=== PATIENT | female | born 1995 | race Caucasian/White ===

== ENCOUNTER 2016-12-16 17:24 | Emergency (ER) | payer OTHER ==
[~2016-12-16] VITALS: Ht 165.1 cm; Wt 95.2 kg
[~2016-12-16 17:24] MED LIST: ACET-1256 PO; FLNIN/ NAE; PRED20TA PO
[2016-12-16 17:44] VITALS: TEMP 36.7; Ht 165.1 cm; Wt 95.2 kg
[2016-12-16] MEDS ORDERED: ETON1IMP2 INTRAD (19:18)
[2016-12-16] MEDS ORDERED: CALC500C3 PO (19:18)
[2016-12-16] MEDS ORDERED: KETOROLAC TROMETHAMINE 30 MG/ML VIAL IV STA (19:20)
[2016-12-16 19:29] LABS: BASO % 0.3 %; BASO ABS # 0.03 K/uL (0-0.2); COMPLETE YES; EOS % 0.8 %; HEMATOCRIT 38.6 % (37-47); IG% 0.2 %; LYMPH % 22.7 %; LYMPH ABS # 2.28 K/uL (1.2-3.4); MEAN CELL VOLUME 86.2 fL (80-100); MEAN CORPUSCULAR HEMOGLOBIN 28.8 pg (25-34); MEAN CORPUSCULAR HGB CONC 33.4 g/dl (32-36); MEAN PLATELET VOLUME 10.4 fL (7.4-10.4); MONO % 7.7 %; NEUT % 68.3 %; PLATELET COUNT 295 K/uL (130-400); RED BLOOD COUNT 4.48 M/uL (4.2-5.4); WHITE BLOOD COUNT 10.03 K/uL (4.8-10.8)
--- NOTE | 2016-12-16 19:35 | DIAGNOSTIC IMAGING REPORT ---
CHEST ONE VIEW PORTABLE CLINICAL HISTORY: Chest pain. COMPARISON STUDY: Chest radiograph October 13, [address] January 31, 2016. FINDINGS: Lung volumes are mildly diminished. No consolidation is identified. There is no pneumothorax or pleural effusion. Pulmonary vascularity is normal. Cardiac size is normal. Mediastinal contours are normal. IMPRESSION: No acute cardiopulmonary findings. Electronically signed by: Abdon Barrientos M.D. 12/16/2016 7:33 PM Dictated Date/Time: 12/16/2016 7:33 PM
[2016-12-16 19:41] LABS: BUN/CREATININE RATIO 13.8 (10-20); CALCIUM 9.1 mg/dl (8.5-10.1); CREATININE 0.73 mg/dl (0.60-1.20); POTASSIUM 3.8 mmol/L (3.5-5.1)
[2016-12-16 19:46] LABS: CKMB/CK RATIO 0.5 (0-3.0); PREG INTERNAL NEGATIVE QC NEG CLEAR BACKGROUND; PREG INTERNAL POSITIVE QC POS CONTROL LINE
[2016-12-16] MEDS ORDERED: HYDROmorphone INJ 0.5 MG/0.5 ML SYR IV STA (19:54)
[2016-12-16 20:29] LABS: URINE APPEARANCE CLOUDY (CLEAR); URINE BILIRUBIN NEG (NEG); URINE COLOR DK YELLOW; URINE EPITHELIAL CELL AUTO >30 /lpf (0-5); URINE NITRITE NEG (NEG); UROBILINOGEN NEG (NEG)
[2016-12-16 20:35] LABS: MANUAL MICROSCOPIC REQUIRED? NO; REVIEW REQ? YES
[2016-12-16 20:45] LABS: URINE MUCUS PRESENT (NONE PRSENT)
[2016-12-16] MEDS ORDERED: OXYCODONE IR HOME PACK PO ONE (21:15)
[2016-12-16 21:31] VITALS: BP 126/90; PULSE 64; O2SAT 100
--- NOTE | 2016-12-16 23:19 | EMERGENCY ROOM VISIT NOTE ---
History Report prepared by Coco: Marta Pérez Under the Supervision of: Dr. Ayaz Mock M.D. First contact with patient: 19:08 Chief Complaint: PAIN (GENERALIZED) Stated Complaint: CHEST,SHOULDER, BACK PAIN History of Present Illness The patient is a 21 year old female who presents to the Emergency Room with complaints of worsening pain to the upper body beginning this afternoon. The patient states that she began to experience chest pain and thought it was heart burn. The patient took TUMS and then napped. She notes that when she woke up she experienced more pain that radiated into her shoulders and back also. The patient has taken Advil for the pain. She denies having symptoms like this before or recent injuries. She does note that she has been doing a lot of lifting because her child had a leg injury and has been in a splint. She denies any recent prolonged travel. No leg swelling or pain. No prior history of clot. Pt denies LOC, headache, fevers, chills, diaphoresis, visual changes, neck pain, breathing difficulties, nausea, vomiting, abdominal pain, melena, hematochezia, urinary symptoms, numbness, weakness, lymphadenopathy, rash, or other complaints. Source of History: patient Onset: this afternoon Position: other (upper body) Timing: worsening Associated Symptoms: + back pain, + chest pain Note: Patient is experiencing shoulder pain. Review of Systems See HPI for pertinent positives and negatives. A total of ten systems were reviewed and were otherwise negative. Past Medical & Surgical Medical Problems: (1) Abdominal pain (2) Arm pain (3) Calf pain (4) Calf pain (5) Chest pain (6) Depression (7) Hemorrhoids (8) Left shoulder strain (9) Mood disorder (10) Post-dates (11) (12) Third trimester Family History Heart disease Hypertension Kidney disease Social History Smoking Status: Current Every Day Smoker Alcohol Use: none Drug Use: none Marital Status: in relationship Housing Status: lives with family Occupation Status: unemployed Current/Historical Medications Scheduled Etonogestrel (Nexplanon), 68 MG INTRAD UD Scheduled PRN Acetaminophen (Tylenol), 1,000 MG PO Q8 PRN for Pain Calcium Carbonate (Tums), 500 MG PO UD PRN for Heartburn Allergies Coded Allergies: No Known Allergies (Unverified , 12/24/16) Physical Exam Vital Signs Date Time Temp Pulse Resp B/P Pulse Ox O2 Delivery O2 Flow Rate FiO2 12/16/16 21:31 64 18 126/90 100 12/16/16 19:31 65 18 131/69 96 12/16/16 17:44 36.7 82 16 136/103 98 Room Air Physical Exam GENERAL: Awake, alert, well-appearing, in no distress HENT: Normocephalic, atraumatic. Oropharynx unremarkable. EYES: Normal conjunctiva. Sclera non-icteric. NECK: Supple. No nuchal rigidity. FROM. No JVD. RESPIRATORY: Clear to auscultation. CARDIAC: Regular rate, normal rhythm. Extremities warm and well perfused. Pulses equal. ABDOMEN: Soft, non-distended. No tenderness to palpation. No rebound or guarding. No masses. RECTAL: Deferred. MUSCULOSKELETAL: Chest examination reveals left sided tenderness. The back is symmetrical on inspection without obvious abnormality. Left trapezius tenderness. There is no CVA tenderness to palpation. No joint edema. LOWER EXTREMITIES: Calves are equal size bilaterally and non-tender. No edema. No discoloration. NEURO: Normal sensorium. No sensory or motor deficits noted. SKIN: No rash or jaundice noted. Medical Decision & Procedures ER Provider Diagnostic Interpretation: X-ray: Per my interpretation, radiologist review. CHEST ONE VIEW PORTABLE CLINICAL HISTORY: Chest pain. COMPARISON STUDY: Chest radiograph October 13, [address] January 31, 2016. FINDINGS: Lung volumes are mildly diminished. No consolidation is identified. There is no pneumothorax or pleural effusion. Pulmonary vascularity is normal. Cardiac size is normal. Mediastinal contours are normal. IMPRESSION: No acute cardiopulmonary findings. Electronically signed by: Abdon Barrientos M.D. 12/16/2016 7:33 PM Dictated Date/Time: 12/16/2016 7:33 PM Laboratory Results 12/16/16 19:20 Red Blood Count 4.48, Mean Corpuscular Volume 86.2, Mean Corpuscular Hemoglobin 28.8, Mean Corpuscular Hemoglobin Concent 33.4, Mean Platelet Volume 10.4, Neutrophils (%) (Auto) 68.3, Lymphocytes (%) (Auto) 22.7, Monocytes (%) (Auto) 7.7, Eosinophils (%) (Auto) 0.8, Basophils (%) (Auto) 0.3, Neutrophils # (Auto) 6.85, Lymphocytes # (Auto) 2.28, Monocytes # (Auto) 0.77, Eosinophils # (Auto) 0.08, Basophils # (Auto) 0.03 12/16/16 19:20 Test 12/16/16 19:20 12/16/16 19:25 12/16/16 20:11 White Blood Count 10.03 K/uL (4.8-10.8) Red Blood Count 4.48 M/uL (4.2-5.4) Hemoglobin 12.9 g/dL (12.0-16.0) Hematocrit 38.6 % (37-47) Mean Corpuscular Volume 86.2 fL (80-100) Mean Corpuscular Hemoglobin 28.8 pg (25-34) Mean Corpuscular Hemoglobin Concent 33.4 g/dl (32-36) Platelet Count 295 K/uL (130-400) Mean Platelet Volume 10.4 fL (7.4-10.4) Neutrophils (%) (Auto) 68.3 % Lymphocytes (%) (Auto) 22.7 % Monocytes (%) (Auto) 7.7 % Eosinophils (%) (Auto) 0.8 % Basophils (%) (Auto) 0.3 % Neutrophils # (Auto) 6.85 K/uL (1.4-6.5) Lymphocytes # (Auto) 2.28 K/uL (1.2-3.4) Monocytes # (Auto) 0.77 K/uL (0.11-0.59) Eosinophils # (Auto) 0.08 K/uL (0-0.5) Basophils # (Auto) 0.03 K/uL (0-0.2) RDW Standard Deviation 48.3 fL (36.4-46.3) RDW Coefficient of Variation 15.2 % (11.5-14.5) Immature Granulocyte % (Auto) 0.2 % Immature Granulocyte # (Auto) 0.02 K/uL (0.00-0.02) Anion Gap 7.0 mmol/L (3-11) Est Creatinine Clear Calc Drug Dose 136.8 ml/min Estimated GFR () 134.5 Estimated GFR (Non- 116.1 BUN/Creatinine Ratio 13.8 (10-20) Calcium Level 9.1 mg/dl (8.5-10.1) Total Bilirubin 0.3 mg/dl (0.2-1) Direct Bilirubin 0.1 mg/dl (0-0.2) Aspartate Amino Transf (AST/SGOT) 21 U/L (15-37) Alanine Aminotransferase (ALT/SGPT) 41 U/L (12-78) Alkaline Phosphatase 104 U/L (45-117) Total Creatine Kinase 145 U/L (26-192) Creatine Kinase MB 0.7 ng/ml (0.5-3.6) Creatine Kinase MB Ratio 0.5 (0-3.0) Total Protein 7.6 gm/dl (6.4-8.2) Albumin 3.6 gm/dl (3.4-5.0) Lipase 136 U/L (73-393) Human Chorionic Gonadotropin, Qual NEG (NEG) Bedside D-Dimer 280 ng/mlFEU (0-450) Bedside Troponin I 0.000 ng/ml (0-0.045) Urine Color DK YELLOW Urine Appearance CLOUDY (CLEAR) Urine pH 6.0 (4.5-7.5) Urine Specific [place] 1.030 (1.000-1.030) Urine Protein TRACE (NEG) Urine Glucose (UA) NEG (NEG) Urine Ketones TRACE (NEG) Urine Occult Blood NEG (NEG) Urine Nitrite NEG (NEG) Urine Bilirubin NEG (NEG) Urine Urobilinogen NEG (NEG) Urine Leukocyte Esterase MODERATE (NEG) Urine WBC (Auto) 10-30 /hpf (0-5) Urine RBC (Auto) 5-10 /hpf (0-4) Urine Hyaline Casts (Auto) 10-30 /lpf (0-5) Urine Epithelial Cells (Auto) >30 /lpf (0-5) Urine Bacteria (Auto) 1+ (NEG) Urine Mucus PRESENT (NONE PRSENT) Laboratory results reviewed by me Medications Administered Medications (Trade) Dose Ordered Sig/Isa Route Start Time Stop Time Status Last Admin Dose Admin Ketorolac Tromethamine (Toradol Inj) 30 mg NOW STAT IV 12/16/16 19:20 12/16/16 19:21 DC 12/16/16 19:29 30 MG Hydromorphone HCl (Dilaudid Inj) 0.5 mg NOW STAT IV 12/16/16 19:54 12/16/16 19:55 DC 12/16/16 20:00 0.5 MG Oxycodone HCl (Roxicodone Immediate Rel 5MG Home Pack) 1 homepack UD ONCE PO 12/16/16 21:15 12/16/16 21:16 DC 12/16/16 21:24 1 HOMEPACK ECG Indication: chest pain Rate (beats per minute): 80 Rhythm: normal sinus Findings: nonspecific-ST abn, no acute ischemic change, no ectopy, other (low voltage QRS) ED Course 1918: The patient was evaluated in room C5. A complete history and physical exam was performed. 1919: Toradol Inj 30 mg IV. 1953: Dilaudid Inj 0.5 mg IV. 2111: I reevaluated the patient. She is doing better but still in slight pain. She denies any urinary symptoms. I discussed plan for pain medication and follow up with PCP. 2114: Roxicodone Immediate Rel 5 mg Home Pack 1 homepack PO. 2117: I reevaluated the patient. Discussed results and discharge instructions: She verbalized understanding and agreement. The patient is ready for discharge. Medical Decision Triage Nursing notes reviewed. The patient's presentation and history were concerning for chest and back pain. Etiologies such as costochondritis, cardiac ischemia, aortic dissection, pulmonary embolism, pneumonia, pneumothorax, musculoskeletal, infections, gastrointestinal, as well as others were entertained. The patient was evaluated . She was given Toradol for pain. ECG was unremarkable. The patient had pain all day today. Her CBC, chemistry panel, LFTs, lipase, test, troponin, and d-dimer were negative. A single troponin was performed due to the duration of symptoms and physical examination. The patient had reproducible tenderness. She was then given a dose of Dilaudid. On reassessment she was feeling better but still had some discomfort. I suspect costochondritis. X-ray was unremarkable. Conservative management was discussed. The patient felt very comfortable with this. I did ask her about urinary symptoms and she stated she had none. Suspect this was likely contaminated specimen given the epithelial cells. The patient was given a home pack. She will rest. If she worsens she will come back to the Emergency Room. By the evaluation outlined above other emergent etiologies such as those listed in the differential, as well as others, were deemed relatively unlikely. The patient was informed about the findings as listed above. All questions were answered and she was pleased with the treatment. Return instructions were outlined and the patient was discharged in stable condition. The patient was referred to her PCP for follow-up for a recheck of the current condition. The chart was completed utilizing [employer] Speech voice recognition software. Grammatical errors, random word insertions, pronoun errors, and incomplete sentences are an occasional consequence of this system due to software limitations, ambient noise, and hardware issues. Any formal questions or concerns about the content, text, or information contained within the body of this dictation should be directly addressed to the physician for clarification. [place] Drug Monitoring Program Search Results: patient reviewed within database, no issues identified Impression Primary Impression: Left sided chest pain Additional Impression: trapezius pain Scribe Attestation The scribe's documentation has been prepared under my direction and personally reviewed by me in its entirety. I confirm that the note above accurately reflects all work, treatment, procedures, and medical decision making performed by me. Departure Information Dispostion Home / Self-Care Referrals Ruth Rossi D.O. (PCP) Forms HOME CARE DOCUMENTATION FORM, IMPORTANT VISIT INFORMATION, WORK / SCHOOL INSTRUCTIONS Patient Instructions My [facility] Additional Instructions CHEST PAIN INSTRUCTIONS: DO NOT drive, drink alcohol, operate machinery, or perform dangerous activities today. You were given medications in the ER that can affect your ability to safely function or operate a vehicle. Oxycodone (OxyIR) 5mg: Take 1-2 pills every four hours for breakthrough pain. Avoid alcohol, operating machinery or dangerous equipment, working on ladders or roofs, DRIVING, or situations where being under the influence may be dangerous. Ibuprofen(Motrin, Advil) may be used for fever or pain. Use 600mg every six hours as needed. Take with food. Avoid using more than 2400mg in a 24 hour period. Do not use 2400mg per day for more than three consecutive days without physician direction. Prolonged inappropriate use can lead to stomach upset or ulcers. (AND/OR) Acetaminophen(Tylenol) may be used for fever or pain. Use 1000mg every six hours as needed. Avoid using more than 4000mg in a 24 hour period. Rest and drink plenty of fluids as tolerated. Continue current medications. Warm compresses for 20 minutes at a time four times daily for 2-3 days. Avoid strenuous activities and anything that worsens your pain. Resume normal activities once your symptoms resolve. Return to the ER immediately for worsening or persistent chest pain, abdominal pain, vomiting, fevers, chest pains, difficulty breathing, worsening of your condition, or as needed. Follow up with your primary physician in 2-3 days for a recheck of your current condition. Problem Qualifiers
== END 2016-12-16 21:32 | disposition home or self-care (01) ==
LOC: C.EDB 17:26 → C.EDC 21:32
DX: R07.9 Chest pain, unspecified (principal); M25.512 Pain in left shoulder; F32.9 Major depressive disorder, single episode, unspecified; F17.210 Nicotine dependence, cigarettes, uncomplicated

== ENCOUNTER 2017-03-20 09:27 | Emergency (ER) | payer OTHER ==
[~2017-03-20] VITALS: Ht 165.1 cm; Wt 94.0 kg
[~2017-03-20 09:27] MED LIST changes: +CALC500C3 PO; +ETON1IMP2 INTRAD; -FLNIN/ NAE; -PRED20TA PO
[2017-03-20 09:29] VITALS: TEMP 37; Ht 165.1 cm; Wt 94.0 kg
[2017-03-20] MEDS ORDERED: IBUP-1050 PO (09:40)
[2017-03-20] MEDS ORDERED: HYDR-5688 PO (10:33)
[2017-03-20] MEDS ORDERED: PENI500T2 PO (10:33)
--- NOTE | 2017-03-20 10:34 | EMERGENCY ROOM VISIT NOTE ---
ED Visit Note First contact with patient: 09:52 CHIEF COMPLAINT: Right upper dental pain 2 days HISTORY OF PRESENT ILLNESS: Patient is a 22-year-old white female who presents to emergency department for evaluation of right upper dental pain. She has had problems with the tooth for several months. Her dentist has been placing "temporary fillings." She states the filling fell out recently. She has an appointment with Dr. Arteaga in [place] on April 05 to have the tooth extracted. She states that despite using Tylenol and ibuprofen, she reports 10/ 10 throbbing pain in the right jaw that radiates to the right ear. She's been icing constantly. There has been no drainage or discharge. She cannot see her dentist until the end of next week, and reports that she is on the cancellation list for the oral surgeon. Denies facial swelling or fever. REVIEW OF SYSTEMS: Review of systems as per HPI. All other systems reviewed were negative. At least 6 systems reviewed. PMH: Electronic medical records are reviewed and summarized as above/below. See Problem List. SOCIAL HISTORY: Patient lives at home. Smoker. PHYSICAL EXAM: Vital Signs: Reviewed Nurse's notes. CONSTITUTIONAL: Patient is a well-appearing 22-year-old white female who is awake and alert and in mild distress due to her dental pain. She is holding an ice pack on the right side of her face. Vital signs are stable. EARS: Tympanic membranes intact, not inflamed, have normal contour. External canals clear. MOUTH: Overall the patient has fair dentition. The right upper rear molar in question has an obvious cavity, and is tender to percussion. There is slight swelling along the gumline although no focal abscess. Mucous membranes moist, no lesions, tongue and gums appear normal. THROAT: No pharyngeal injection, exudates, or tonsillar hypertrophy. Airway is patent. No trismus noted. FACE: No facial swelling is appreciated. No cellulitic changes. NECK: No lymphadenopathy. ED course: The patient was seen and assessed as above. Her old records are reviewed. Patient was reviewed in the [facility] Prescription Drug Monitoring Program, and there were no red flags noted. She has 2 controlled substance prescriptions in the last 12 months. She is appointment with oral surgery in a couple of weeks. She will be placed on Pen- Vee K to cover for any infection was given a small prescription for Naylor to use for discomfort. She was encouraged to see her dentist next week, and to follow-up with oral surgeon as scheduled. She does not have any evidence for drainable abscess, facial cellulitis or Naun's angina at this time. Problem List Medical Problems: (1) Abdominal pain Status: Resolved (2) Arm pain Status: Resolved (3) Calf pain Status: Resolved (4) Calf pain Status: Resolved (5) Chest pain Status: Resolved (6) Depression Status: Chronic (7) Hemorrhoids Status: Chronic (8) Left shoulder strain Status: Resolved (9) Left sided chest pain Status: Resolved (10) Mood disorder Status: Chronic (11) Post-dates Status: Resolved (12) Status: Resolved (13) Third trimester Status: Resolved Current/Historical Medications Scheduled Etonogestrel (Nexplanon), 68 MG INTRAD UD Ibuprofen (Advil), 200-600 MG PO Q4H Penicillin V Potassium (Veetids), 500 MG PO QID Scheduled PRN Acetaminophen (Tylenol), 1,000 MG PO Q8 PRN for Pain Hydrocodone/Acetaminophen 5MG/325MG (Naylor 5MG/325MG), 1-2 TABLETS PO Q4 PRN for Pain Allergies Coded Allergies: No Known Allergies (Unverified , 03/20/17) Vital Signs Date Time Temp Pulse Resp B/P Pulse Ox O2 Delivery O2 Flow Rate FiO2 03/20/17 10:40 87 18 118/83 99 03/20/17 09:29 37.0 87 18 118/83 99 Departure Information Impression Primary Impression: Dentalgia Prescriptions Penicillin V Potassium (VEETIDS) 500 Mg Tab 500 MG PO QID, #40 TAB Prov: Maylin Nolen PA 03/20/17 Hydrocodone/Acetaminophen 5MG/325MG (Naylor 5MG/325MG) Tab 1-2 TABLETS PO Q4 Y for Pain, #20 TAB For Initial Treatment Prov: Maylin Nolen PA 03/20/17 Referrals Ruth Rossi D.O. (PCP) Patient Instructions My [facility] Additional Instructions Penicillin 500mg: Take one pill four times daily for 10 days for your dental infection. All antibiotics can cause diarrhea. If this occurs and you feel worse or it does not resolve in 1-2 days follow up with your doctor or return to the Emergency Department as this could be signs of serious underlying problems. Any medication can cause an allergic reaction, stop the pills immediately and return to the ER for rash, hives, breathing difficulties, or swelling. Ibuprofen(Motrin, Advil) may be used for fever or pain. Use 600mg every six hours as needed. Take with food. Avoid using more than 2400mg in a 24 hour period. Do not use 2400mg per day for more than three consecutive days without physician direction. Prolonged inappropriate use can lead to stomach upset or ulcers. (AND/OR) Acetaminophen(Tylenol) may be used for fever or pain. Use 1000mg every six hours as needed. Avoid using more than 4000mg in a 24 hour period. Hydrocodone/Acetaminophen (Naylor) 5/325 mg: Take 1-2 pills every four hours for breakthrough pain. Avoid alcohol, operating machinery or dangerous equipment, working on ladders or roofs, DRIVING, or situations where being under the influence may be dangerous. It is recommended to use an [id number] stool softener such as Colace, 100mg twice daily while taking this medication to avoid constipation. Saltwater gargles after meals and before bedtime. Soft foods. Followup with your dentist and oral surgeon as you have scheduled. You may also follow up with your primary care physician for pain/care management until you can be seen by your dentist.
[2017-03-20 10:40] VITALS: BP 118/83; PULSE 87; O2SAT 99
== END 2017-03-20 10:40 | disposition home or self-care (01) ==
LOC: C.EDB 09:28
DX: K08.89 Other specified disorders of teeth and supporting structures (principal); F32.9 Major depressive disorder, single episode, unspecified; K64.9 Unspecified hemorrhoids

== ENCOUNTER 2017-05-20 10:23 | Emergency (ER) | payer OTHER ==
[~2017-05-20] VITALS: Ht 165.1 cm; Wt 92.0 kg
[~2017-05-20 10:23] MED LIST changes: -CALC500C3 PO; +HYDR-5688 PO; +IBUP-1050 PO
[2017-05-20 10:29] VITALS: Ht 165.1 cm; Wt 92.0 kg
[2017-05-20 10:59] VITALS: O2SAT 95
[2017-05-20] MEDS ORDERED: SODIUM CHLORIDE 0.9% 1000ML 1,000 ML IV STA (11:15)
[2017-05-20 11:39] LABS: BASO % 0.2 %; BASO ABS # 0.02 K/uL (0-0.2); COMPLETE YES; EOS % 0.7 %; HEMATOCRIT 39.8 % (37-47); IG% 0.2 %; LYMPH % 31.1 %; LYMPH ABS # 3.32 K/uL (1.2-3.4); MEAN CELL VOLUME 88.1 fL (80-100); MEAN CORPUSCULAR HGB CONC 32.9 g/dl (32-36); MEAN PLATELET VOLUME 10.6 fL (7.4-10.4); MONO % 7.1 %; NEUT % 60.7 %; PLATELET COUNT 306 K/uL (130-400); RED BLOOD COUNT 4.52 M/uL (4.2-5.4); WHITE BLOOD COUNT 10.69 K/uL (4.8-10.8)
--- NOTE | 2017-05-20 11:39 | EMERGENCY ROOM VISIT NOTE ---
History First contact with patient: 11:00 Chief Complaint: SYNCOPE Stated Complaint: LETHARGIC History of Present Illness The patient is a 22 year old female who presents to the Emergency Room with complaints of syncopal episode while at work. Patient works for [employer], and states as she was returning to work from a cigarette break, she was walking down the steps and had a syncopal episode. The patient states she was at the bottom of the steps when she began feeling dizzy and lightheaded, and woke up on the concrete floor with somebody shaking her awake. The patient states she was feeling fine this morning, and ate a few crackers and a few sips of water for breakfast. The patient states she went to work feeling okay, and symptoms all came on after her smoke break. The patient states she has been working in a extremely warm room [employer], but did not have symptoms until this episode. She does not complaining of right-sided forehead pain, bilateral anterior chest wall pain during inspiration, and lower abdominal discomfort. The patient states she felt shortness of breath just before and just after the episode of syncope. The patient is unsure if she hit her head, and the episode was unwitnessed. The patient isn't sure of the amount of time she was unconscious. The patient does report history of a similar episode approximately 2 years ago. The patient did see her PCP and had an extensive workup for this episode at that time. At that time, the patient was dealing with a C. difficile infection, so it was felt that her syncope could've been related to her extremities, pain she had associated with the infection. The patient denies any recent illness, diarrhea, urinary symptoms, recent headaches , upper respiratory infection symptoms, weakness, or changes in vision. The patient does state she has been feeling fatigued. The patient states on a regular basis, she does not consume fluids. The patient's last menstrual period was 2 weeks ago, however she states today while in the emergency department, after urinating, she did notice a small amount of blood on the toilet paper when she wiped. The patient is a smoker, and smokes one half pack cigarettes per day. She denies alcohol use, but does admit to smoking marijuana on occasion. Review of Systems A complete 10 point review of systems was reviewed with the patient with pertinent positives and negatives as per history of present illness. All else were negative. Past Medical/Surgical History Medical Problems: (1) Abdominal pain (2) Arm pain (3) Calf pain (4) Calf pain (5) Chest pain (6) Depression (7) Hemorrhoids (8) Left shoulder strain (9) Left sided chest pain (10) Mood disorder (11) Post-dates (12) (13) Third trimester Family History Heart disease Hypertension Kidney disease Social History Smoking Status: Current Every Day Smoker Smokeless Tobacco Use: No Alcohol Use: none Drug Use: marijuana Marital Status: in relationship Housing Status: lives with family Occupation Status: unemployed Current/Historical Medications Scheduled Ibuprofen (Advil), 200-600 MG PO Q4H Nitrofurantoin Monohyd Macrocr (Macrobid), 100 MG PO BID Scheduled PRN Acetaminophen (Tylenol), 1,000 MG PO Q8 PRN for Pain Allergies Coded Allergies: No Known Allergies (Unverified , 05/20/17) Physical Exam Vital Signs Date Time Temp Pulse Resp B/P (MAP) Pulse Ox O2 Delivery O2 Flow Rate FiO2 05/20/17 16:08 36.7 60 18 121/78 91 05/20/17 15:59 60 18 121/78 91 05/20/17 14:23 59 18 99/75 100 Room Air 05/20/17 13:33 56 05/20/17 13:32 51 20 129/85 95 Room Air 05/20/17 11:49 59 113/74 57 107/64 92 131/75 05/20/17 11:03 68 05/20/17 10:59 95 Room Air 05/20/17 10:59 87 20 111/69 95 Room Air 05/20/17 10:29 36.7 58 20 120/67 100 Room Air Physical Exam VITALS: Vitals are noted on the nurse's note and reviewed by myself. Vital signs stable. GENERAL: 22-year-old female, in no acute distress, nondiaphoretic, well- developed well-nourished. SKIN: The skin was without rashes, erythema, edema, or bruising. There is no tenting of the skin. Capillary reflex less than 2 seconds. HEAD: Normocephalic atraumatic. EARS: External auditory canals clear, tympanic membranes pearly bermudez without erythema or effusion bilaterally. EYES: Pupils equal round and reactive to light and accommodation. Conjunctivae without injection, sclerae without icterus. Extraocular movements intact. NOSE: Patent, turbinates without inflammation or discharge. No sinus tenderness. MOUTH: Mucous membranes moist. Tonsils are not enlarged. Pharynx without erythema or exudate. Uvula midline. Airway patent. Tongue does not deviate. NECK: Supple without nuchal rigidity. No lymphadenopathy. No thyromegaly. Cervical spine is nontender. No JVD. HEART: Regular rate and rhythm without murmurs gallops or rubs. LUNGS: Clear to auscultation bilaterally without wheezes, rales or rhonchi. No dullness to percussion. No retractions or accessory muscle use. ABDOMEN: Positive bowel sounds x 4. Normal tympanic percussion. Moderate tenderness on palpation of the lower abdomen and pelvis, suprapubic area. Otherwise, Soft, without tenderness, masses or organomegaly. Oconnor sign negative. No guarding or rebound tenderness. MUSCULOSKELETAL: No muscle atrophy, erythema, or edema noted. Full range of motion without joint tenderness in all extremities. No tenderness to palpation. Normal gait. Strength 5/5 throughout. NEURO: Patient was alert and oriented to person place and time. Normal sensation to light and sharp touch. Deep tendon reflexes 2+ throughout. No focal neurological deficits. Medical Decision & Procedures ER Provider Diagnostic Interpretation: LABS: Urinalysis did show large ketones and protein with trace blood and urine dipstick. Urinalysis was without leukocytosis or positive nitrates. POC glucose was slightly elevated at 103 upon patient's arrival to the emergency department, serum glucose 78. CBC without leukocytosis, anemia, or vomiting. Renal function normal with creatinine of 0.83. Estimated GFR 98.7. Electrolytes without abnormalities. Lipase normal at 145. INR normal 1.0 CRP slightly elevated at 0.72. D-Dimer negative <190. RADIOLOGY: U/S Pelvis with transvaginal: FINDINGS: Uterus: The right uterine fundus contains a 7 mm echogenic focus with posterior shadowing, likely calcification. Retroverted. The uterus measures 7.5 x 4.3 x 5.5 cm. Endometrial stripe measures 5 mm in thickness. Endometrium normal-appearing. Right adnexa: Right ovary normal. Right ovary measures 2.6 x 1.4 x 2.1 cm. Normal color Doppler flow and arterial and venous waveforms within the ovarian parenchyma. Trace free fluid in the right adnexa. Left adnexa: Left ovary contains an anechoic simple appearing 3.5 cm cyst. This is most certainly benign and requires no follow-up. Left ovary measures 5.1 x 4.3 x 3.8 cm., Expanded by the cyst Normal color Doppler flow and arterial and venous waveforms within the ovarian parenchyma. Other: Trace free fluid in the right adnexa, likely physiologic. IMPRESSION: 1. No evidence of ovarian torsion. Essentially normal pelvic ultrasound. CXR: FINDINGS: The cardiac and mediastinal contours are normal. There is no evidence of focal pulmonary consolidation. There is no evidence of failure. No pleural effusions are visualized.[ IMPRESSION: No active disease in the chest. CT Head without contrast: FINDINGS: No intra or extra-axial mass lesions are visualized. There is no CT evidence of acute cortical infarction. There is no evidence of midline shift. There is no acute hemorrhage. No calvarial fractures are visualized. There is no evidence of pathologic ventricular dilatation. There is no evidence of acute sinusitis IMPRESSION: Normal noncontrast head CT. CT C-Spine without contrast: FINDINGS: No fractures. No subluxation. Prevertebral soft tissues and the C1-C2 interval are intact. No pneumothorax. A 1.5 cm sclerotic focus within the right T1 lamina. This is likely benign. IMPRESSION: No fractures within the cervical spine. Renal U/S: FINDINGS: Right kidney: Maximum linear dimension 11.5 cm. No evidence for hydronephrosis. Normal corticomedullary differentiation and cortical thickness. Left kidney: Maximum dimension 10.8 cm. No evidence for hydronephrosis. Normal corticomedullary differentiation and cortical thickness. Bladder: No bladder wall thickening. The bilateral ureteral jets were identified. IMPRESSION: Normal renal ultrasound. Laboratory Results 05/20/17 10:50 Red Blood Count 4.52, Mean Corpuscular Volume 88.1, Mean Corpuscular Hemoglobin 29.0, Mean Corpuscular Hemoglobin Concent 32.9, Mean Platelet Volume 10.6, Neutrophils (%) (Auto) 60.7, Lymphocytes (%) (Auto) 31.1, Monocytes (%) (Auto) 7.1, Eosinophils (%) (Auto) 0.7, Basophils (%) (Auto) 0.2, Neutrophils # (Auto) 6.49, Lymphocytes # (Auto) 3.32, Monocytes # (Auto) 0.76, Eosinophils # (Auto) 0.08, Basophils # (Auto) 0.02 05/20/17 10:50 05/20/17 13:48 Test 05/20/17 10:34 05/20/17 10:50 05/20/17 11:00 05/20/17 13:48 Bedside Glucose 103 mg/dl (70-90) White Blood Count 10.69 K/uL (4.8-10.8) Red Blood Count 4.52 M/uL (4.2-5.4) Hemoglobin 13.1 g/dL (12.0-16.0) Hematocrit 39.8 % (37-47) Mean Corpuscular Volume 88.1 fL (80-100) Mean Corpuscular Hemoglobin 29.0 pg (25-34) Mean Corpuscular Hemoglobin Concent 32.9 g/dl (32-36) Platelet Count 306 K/uL (130-400) Mean Platelet Volume 10.6 fL (7.4-10.4) Neutrophils (%) (Auto) 60.7 % Lymphocytes (%) (Auto) 31.1 % Monocytes (%) (Auto) 7.1 % Eosinophils (%) (Auto) 0.7 % Basophils (%) (Auto) 0.2 % Neutrophils # (Auto) 6.49 K/uL (1.4-6.5) Lymphocytes # (Auto) 3.32 K/uL (1.2-3.4) Monocytes # (Auto) 0.76 K/uL (0.11-0.59) Eosinophils # (Auto) 0.08 K/uL (0-0.5) Basophils # (Auto) 0.02 K/uL (0-0.2) RDW Standard Deviation 49.9 fL (36.4-46.3) RDW Coefficient of Variation 15.4 % (11.5-14.5) Immature Granulocyte % (Auto) 0.2 % Immature Granulocyte # (Auto) 0.02 K/uL (0.00-0.02) Prothrombin Time 10.2 SECONDS (9.0-12.0) Prothromb Time International Ratio 1.0 (0.9-1.1) Activated Partial Thromboplast Time 31.2 SECONDS (21.0-31.0) Partial Thromboplastin Ratio 1.2 D-Dimer < 190 ug/L FEU (0-500) Anion Gap 9.0 mmol/L (3-11) Est Creatinine Clear Calc Drug Dose 117.1 ml/min Estimated GFR () 114.4 Estimated GFR (Non- 98.7 BUN/Creatinine Ratio 15.2 (10-20) Calcium Level 9.0 mg/dl (8.5-10.1) Total Bilirubin 0.4 mg/dl (0.2-1) Aspartate Amino Transf (AST/SGOT) U/L (15-37) Alanine Aminotransferase (ALT/SGPT) 29 U/L (12-78) Alkaline Phosphatase 91 U/L (45-117) Troponin I < 0.015 ng/ml (0-0.045) C-Reactive Protein 0.72 mg/dl (0-0.29) Total Protein 7.0 gm/dl (6.4-8.2) Albumin 3.5 gm/dl (3.4-5.0) Globulin 3.5 gm/dl (2.5-4.0) Albumin/Globulin Ratio 1.0 (0.9-2) Lipase 145 U/L (73-393) Thyroid Stimulating Hormone (TSH) 1.490 uIu/ml (0.300-4.500) Urine Color DK YELLOW Urine Appearance CLOUDY (CLEAR) Urine pH 8.5 (4.5-7.5) Urine Specific [place] 1.027 (1.000-1.030) Urine Protein NEG (NEG) Urine Glucose (UA) NEG (NEG) Urine Ketones 2+ (NEG) Urine Occult Blood 2+ (NEG) Urine Nitrite NEG (NEG) Urine Bilirubin NEG (NEG) Urine Urobilinogen NEG (NEG) Urine Leukocyte Esterase MODERATE (NEG) Urine WBC (Auto) >30 /hpf (0-5) Urine RBC (Auto) 0-4 /hpf (0-4) Urine Hyaline Casts (Auto) 1-5 /lpf (0-5) Urine Epithelial Cells (Auto) >30 /lpf (0-5) Urine Bacteria (Auto) 1+ (NEG) Urine Crystals CALCIUM OXALATE (NONE Urine Pathogenic Casts /lpf (0) Urine Test NEG (NEG) Urine Opiates Screen NEG (NEG) Urine Methadone, Qualitative NEG (NEG) Urine Barbiturates NEG (NEG) Urine Phencyclidine (PCP) Level NEG (NEG) Ur Amphetamine/Methamphetamine NEG (NEG) MDMA (Ecstasy) Screen NEG (NEG) Urine Benzodiazepines Screen NEG (NEG) Urine Cocaine Metabolite NEG (NEG) Urine Marijuana (THC) POS (NEG) Lyme Disease IgG Antibody NEG (NEG) Lyme Disease IgM Antibody NEG (NEG) Medications Administered Medications (Trade) Dose Ordered Sig/Isa Route Start Time Stop Time Status Last Admin Dose Admin Sodium Chloride 1,000 ml @ 999 mls/hr Q1H1M STAT IV 05/20/17 11:15 05/20/17 12:15 DC 05/20/17 12:00 999 MLS/HR Ketorolac Tromethamine (Toradol Inj) 30 mg NOW STAT IV 05/20/17 12:32 05/20/17 12:33 DC 05/20/17 13:27 30 MG Nicotine (Nicoderm Cq 21MG Patch) 1 patch NOW STAT TD 05/20/17 14:33 05/20/17 14:37 DC 05/20/17 14:48 1 PATCH ECG Indication: abdominal pain, SOB/dyspnea, syncope Rhythm: sinus bradycardia Findings: no acute ischemic change Comparison ECG Date: 12/16/2016 Change: Patient's previous EKG did show normal sinus rhythm with sinus arrhythmia. Her current EKG shows sinus bradycardia. Her previous EKG did show nonspecific T- wave abnormalities, however this is not noted in her current EKG. ED Course The patient was evaluated as above. Labs, EKG, chest x-ray, head and neck CT scan, pelvic ultrasound were ordered. 1 L bolus normal saline solution initiated. The patient reports 9/10 suprapubic pain. This was relieved with 30 mg Toradol IV. I reviewed all initial studies which were performed. Based on patient's urinalysis results and symptoms, a renal ultrasound was ordered. I did discuss the case with Dr. Teran. The patient did request nicotine patch at this time because she is feeling anxious and concerned about not smoking. I reviewed all results of testing with the patient and encouraged close outpatient follow-up. The patient was discharged home in good condition. Medical Decision Throughout the course of the patient's care, I considered etiologies including: Vasovagal syncope, cardiac etiology of syncope, closed head injury, concussion, cervical spine fracture, head contusion, skull fracture, pulmonary embolism, pneumonia, bronchitis, deep venous thrombosis, uterine fibroid, , ovarian torsion, ovarian cyst, urinary tract infection, pyelonephritis, nephrolithiasis, hydronephrosis, malignancy, and others. Based on the patient's workup, I did not find an obvious acute cause for the patient's syncopal episode. I did encourage close outpatient follow-up and further workup with her PCP. Labs did reveal significant abnormality and patient's urine. I do feel that this is related to urinary tract infection, which is likely causing the patient' s suprapubic pain. Will treat the UTI at this time and encouraged follow-up outpatient. Impression Primary Impression: Syncope Additional Impression: Urinary tract infection Departure Information Dispostion Home / Self-Care Condition GOOD Prescriptions Nitrofurantoin Monohyd Macrocr (Macrobid) 100 Mg Cap 100 MG PO BID for 7 Days, #14 CAP Prov: Sade Mathur PA-C 05/20/17 Referrals Ruth Rossi D.O. (PCP) Patient Instructions ED UTI Cystitis Female, My [facility] Additional Instructions You have been treated in the Emergency Department for a Syncope. While here, we did not a Urinary Tract Infection (UTI). Extensive workup was performed emergency department due to syncopal episode, with no significant abnormal findings with the exception of the urinary tract infection. You have been prescribed Macrobid to be taken twice daily. This is an antibiotic. All antibiotics have the potential to cause diarrhea. Stop this medication and contact a medical provider if you were to develop any significant adverse side effects including: wheezing, shortness of breath, passing out, vomiting, or a diffuse rash. Always take antibiotics as directed and COMPLETE the ENTIRE course regardless of the improvement of your symptoms. Drink plenty of water and stay well hydrated. As with any trip to the Emergency Department, you should follow-up with your Primary Care Provider in 1-2 days from today's visit. You may need a further outpatient workup performed due to syncopal episode. Return to the emergency department if your symptoms persist despite treatment plan outlined above or if the following symptoms occur: increased fevers, chills , low back pain, nausea/vomiting, or blood in your urine. Work Instructions Return To Work: 2 days Problem Qualifiers Primary Impression: Syncope Syncope type: unspecified Qualified Codes: R55 - Syncope and collapse Additional Impression: Urinary tract infection Urinary tract infection type: acute cystitis Hematuria presence: with hematuria Qualified Codes: N30.01 - Acute cystitis with hematuria
[2017-05-20 11:58] LABS: ALT/SGPT 29 U/L (12-78); BLOOD UREA NITROGEN 13 mg/dl (7-18); BUN/CREATININE RATIO 15.2 (10-20); CARBON DIOXIDE 22 mmol/L (21-32); CHLORIDE 109 mmol/L (98-107); CREATININE 0.83 mg/dl (0.60-1.20); GLUCOSE 78 mg/dl (70-99); SODIUM 140 mmol/L (136-145)
[2017-05-20 12:01] LABS: ALKALINE PHOSPHATASE 91 U/L (45-117); C-REACTIVE PROTEIN 0.72 mg/dl (0-0.29)
[2017-05-20 12:03] LABS: URINE APPEARANCE CLOUDY (CLEAR); URINE COLOR DK YELLOW; URINE EPITHELIAL CELL AUTO >30 /lpf (0-5); URINE NITRITE NEG (NEG); URINE PH 8.5 (4.5-7.5); URINE SPECIFIC GRAVITY 1.027 (1.000-1.030); UROBILINOGEN NEG (NEG); ZZUR CULT IF INDIC CLEAN CATCH YES
[2017-05-20 12:04] LABS: PARTIAL THROMBOPLASTIN RATIO 1.2; PROTHROMBIN TIME (PATIENT) 10.2 SECONDS (9.0-12.0)
--- NOTE | 2017-05-20 12:14 | DIAGNOSTIC IMAGING REPORT ---
CT HEAD WITHOUT CONTRAST (CT) CLINICAL HISTORY: Syncope. Possible right-sided head trauma. COMPARISON STUDY: 08/20/2016 TECHNIQUE: Axial CT of the brain is performed from the vertex to the skull base. IV contrast was not administered for this examination. A dose lowering technique was utilized adhering to the principles of ALARA. CT DOSE: FINDINGS: No intra or extra-axial mass lesions are visualized. There is no CT evidence of acute cortical infarction. There is no evidence of midline shift. There is no acute hemorrhage. No calvarial fractures are visualized. There is no evidence of pathologic ventricular dilatation. There is no evidence of acute sinusitis IMPRESSION: Normal noncontrast head CT. Electronically signed by: Brown Johnson M.D. 05/20/2017 12:13 PM Dictated Date/Time: 05/20/2017 12:11 PM
--- NOTE | 2017-05-20 12:17 | DIAGNOSTIC IMAGING REPORT ---
CERVICAL SPINE CT CT DOSE: 1082.55 mGy.cm HISTORY: syncope, fall, unknown head/neck injury TECHNIQUE: Multiaxial CT images of the cervical spine were performed and reformatted in the sagittal and coronal plane without the use of contrast. A dose lowering technique was utilized adhering to the principles of ALARA. COMPARISON: None. FINDINGS: No fractures. No subluxation. Prevertebral soft tissues and the C1-C2 interval are intact. No pneumothorax. A 1.5 cm sclerotic focus within the right T1 lamina. This is likely benign. IMPRESSION: No fractures within the cervical spine. Electronically signed by: Nolan Fitzgerald M.D. 05/20/2017 12:16 PM Dictated Date/Time: 05/20/2017 12:13 PM
[2017-05-20 12:24] LABS: MANUAL MICROSCOPIC REQUIRED? NO; REVIEW REQ? YES; SULFASALICYLIC ACID NEG (NEG); URINE BILIRUBIN NEG (NEG)
[2017-05-20] MEDS ORDERED: KETOROLAC TROMETHAMINE 30 MG/ML VIAL IV STA (12:32)
--- NOTE | 2017-05-20 12:47 | DIAGNOSTIC IMAGING REPORT ---
CHEST 2 VIEWS ROUTINE CLINICAL HISTORY: syncope, dyspnea COMPARISON STUDY: 12/16/2016 FINDINGS: The cardiac and mediastinal contours are normal. There is no evidence of focal pulmonary consolidation. There is no evidence of failure. No pleural effusions are visualized.[ IMPRESSION: No active disease in the chest. Electronically signed by: Brown Johnson M.D. 05/20/2017 12:46 PM Dictated Date/Time: 05/20/2017 12:46 PM
[2017-05-20 12:52] LABS: BENZODIAZEPINE, URINE NEG (NEG); COCAINE,URINE NEG (NEG); PHENCYCLIDINE, URINE NEG (NEG)
--- NOTE | 2017-05-20 13:17 | DIAGNOSTIC IMAGING REPORT ---
PELVIC COMPLETE NON OB CLINICAL HISTORY: 22 years-old Female presenting with pelvic pain, syncope, history of tubal ligation, regular menstrual cycles. TECHNIQUE: Real-time grayscale and color and spectral Doppler ultrasound imaging of the pelvis was performed first using a transabdominal probe and subsequently transvaginal for better characterization. COMPARISON: 03/21/2015. FINDINGS: Uterus: The right uterine fundus contains a 7 mm echogenic focus with posterior shadowing, likely calcification. Retroverted. The uterus measures 7.5 x 4.3 x 5.5 cm. Endometrial stripe measures 5 mm in thickness. Endometrium normal-appearing. Right adnexa: Right ovary normal. Right ovary measures 2.6 x 1.4 x 2.1 cm. Normal color Doppler flow and arterial and venous waveforms within the ovarian parenchyma. Trace free fluid in the right adnexa. Left adnexa: Left ovary contains an anechoic simple appearing 3.5 cm cyst. This is most certainly benign and requires no follow-up. Left ovary measures 5.1 x 4.3 x 3.8 cm., Expanded by the cyst Normal color Doppler flow and arterial and venous waveforms within the ovarian parenchyma. Other: Trace free fluid in the right adnexa, likely physiologic. IMPRESSION: 1. No evidence of ovarian torsion. Essentially normal pelvic ultrasound. Electronically signed by: Gabriel Batista M.D. 05/20/2017 1:15 PM Dictated Date/Time: 05/20/2017 1:11 PM
[2017-05-20] MEDS ORDERED: NICOTINE 21 MG/24 HR TDSY TD STA (14:33)
[2017-05-20 14:51] LABS: LYME DISEASE AB IGG NEG (NEG); LYME DISEASE AB IGM NEG (NEG)
--- NOTE | 2017-05-20 15:22 | DIAGNOSTIC IMAGING REPORT ---
(RENAL)RETROPERITONEA COMP HISTORY: Flank pain hematuria, pelvic pain, syncope COMPARISON: 11/16/2014 FINDINGS: Right kidney: Maximum linear dimension 11.5 cm. No evidence for hydronephrosis. Normal corticomedullary differentiation and cortical thickness. Left kidney: Maximum dimension 10.8 cm. No evidence for hydronephrosis. Normal corticomedullary differentiation and cortical thickness. Bladder: No bladder wall thickening. The bilateral ureteral jets were identified. IMPRESSION: Normal renal ultrasound. The above report was generated using voice recognition software. It may contain grammatical, syntax or spelling errors. Electronically signed by: Artem Jaime M.D. 05/20/2017 3:20 PM Dictated Date/Time: 05/20/2017 3:19 PM
[2017-05-20] MEDS ORDERED: NITR-5 PO (15:49)
[2017-05-20 16:08] VITALS: BP 121/78; PULSE 60; TEMP 36.7; O2SAT 91
== END 2017-05-20 16:09 | disposition home or self-care (01) ==
LOC: EDBD 10:23 → C.EDA 10:23
DX: R55 Syncope and collapse (principal); N30.01 Acute cystitis with hematuria; F32.9 Major depressive disorder, single episode, unspecified; F39 Unspecified mood [affective] disorder; Z82.49 Family history of ischemic heart disease and other diseases of the circulatory system; F17.200 Nicotine dependence, unspecified, uncomplicated; F12.90 Cannabis use, unspecified, uncomplicated

== ENCOUNTER 2017-09-24 17:44 | Emergency (ER) | payer OTHER ==
[~2017-09-24] VITALS: Ht 165.1 cm; Wt 89.3 kg
[~2017-09-24 17:44] MED LIST changes: -ETON1IMP2 INTRAD; -HYDR-5688 PO
[2017-09-24 17:56] VITALS: TEMP 37; Ht 165.1 cm; Wt 89.3 kg
[2017-09-24] MEDS ORDERED: ONDANSETRON INJ 2 MG/ML 2 ML VIAL IV STA (18:11)
[2017-09-24] MEDS ORDERED: KETOROLAC TROMETHAMINE 30 MG/ML VIAL IV STA (18:11)
[2017-09-24] MEDS ORDERED: FAMOTIDINE 20MG/5ML IV PUSH IV STA (18:15)
[2017-09-24 18:41] LABS: BASO % 0.2 %; BASO ABS # 0.03 K/uL (0-0.2); COMPLETE YES; EOS % 0.6 %; HEMATOCRIT 40.7 % (37-47); IG% 0.2 %; LYMPH % 15.2 %; LYMPH ABS # 2.01 K/uL (1.2-3.4); MEAN CELL VOLUME 90.6 fL (80-100); MEAN CORPUSCULAR HEMOGLOBIN 30.1 pg (25-34); MEAN CORPUSCULAR HGB CONC 33.2 g/dl (32-36); MEAN PLATELET VOLUME 10.4 fL (7.4-10.4); MONO % 5.3 %; NEUT % 78.5 %; PLATELET COUNT 267 K/uL (130-400); RED BLOOD COUNT 4.49 M/uL (4.2-5.4); WHITE BLOOD COUNT 13.24 K/uL (4.8-10.8)
--- NOTE | 2017-09-24 18:59 | DIAGNOSTIC IMAGING REPORT ---
ABDOMEN 2VIEW W/PA CHEST RTN CLINICAL HISTORY: ABDOMINAL PAIN/CONSTIPATION pain COMPARISON STUDY: 05/20/2017 FINDINGS: The soft tissues, psoas shadows, renal outlines and intestinal gas pattern appear normal. There is no evidence for bowel obstruction. There is no evidence for free intraperitoneal air. No abnormal abdominal calcifications are seen. A frontal view of the chest was performed and is unremarkable. IMPRESSION: Normal study. The above report was generated using voice recognition software. It may contain grammatical, syntax or spelling errors. Electronically signed by: Artem Jaime M.D. 09/24/2017 6:58 PM Dictated Date/Time: 09/24/2017 6:58 PM
[2017-09-24 19:09] LABS: ALKALINE PHOSPHATASE 91 U/L (45-117); ALT/SGPT 29 U/L (12-78); BLOOD UREA NITROGEN 14 mg/dl (7-18); BUN/CREATININE RATIO 19.2 (10-20); CALCIUM 8.8 mg/dl (8.5-10.1); CARBON DIOXIDE 24 mmol/L (21-32); CHLORIDE 107 mmol/L (98-107); GLUCOSE 90 mg/dl (70-99); SODIUM 135 mmol/L (136-145)
[2017-09-24 19:22] LABS: URINE APPEARANCE CLEAR (CLEAR); URINE BILIRUBIN NEG (NEG); URINE COLOR YELLOW; URINE EPITHELIAL CELL AUTO >30 /lpf (0-5); URINE NITRITE NEG (NEG); URINE SPECIFIC GRAVITY 1.027 (1.000-1.030); UROBILINOGEN NEG (NEG)
[2017-09-24 19:23] LABS: MANUAL MICROSCOPIC REQUIRED? NO; REVIEW REQ? NO
[2017-09-24 19:36] LABS: BENZODIAZEPINE, URINE NEG (NEG); COCAINE,URINE NEG (NEG); PHENCYCLIDINE, URINE NEG (NEG)
[2017-09-24] MEDS ORDERED: ACETAMINOPHEN 500 MG TAB PO STA (19:36)
[2017-09-24] MEDS ORDERED: TRAMADOL HCL 50 MG TAB PO STA (19:36)
[2017-09-24] MEDS ORDERED: PROMETHAZINE HCL INJ 25 MG in SODIUM CHLORIDE 0.9% 50ML 50 ML IV STA (19:56)
[2017-09-24] MEDS ORDERED: MoRPHine SULFATE 4 MG/ML 1 ML CARP\\VIAL IV STA (19:56)
[2017-09-24 20:33] LABS: AST/SGOT 17 U/L (15-37); POTASSIUM 4.4 mmol/L (3.5-5.1)
[2017-09-24 21:00] LABS: CREATININE 0.73 mg/dl (0.60-1.20)
--- NOTE | 2017-09-24 21:30 | DIAGNOSTIC IMAGING REPORT ---
ABDOMEN LIMITED (US) HISTORY: Pain. Nausea. Epigastric/RUQ pain. COMPARISON: None. FINDINGS: Pancreas: The pancreas demonstrates a normal echotexture. Liver: Mild fatty infiltration Gallbladder: No gallbladder wall thickening. No gallstones. CBD: 3 mm Right kidney: No hydronephrosis. IMPRESSION: Negative study. Mild fatty infiltration of liver. The above report was generated using voice recognition software. It may contain grammatical, syntax or spelling errors. Electronically signed by: Artem Jaime M.D. 09/24/2017 9:28 PM Dictated Date/Time: 09/24/2017 9:28 PM
[2017-09-24] MEDS ORDERED: ONDA4TAB10 SL (21:54)
[2017-09-24] MEDS ORDERED: ONDANSETRON HOME PACK 4MG OD TAB PO ONE (22:00)
[2017-09-24 22:15] VITALS: BP 110/68; PULSE 70; O2SAT 99
--- NOTE | 2017-09-24 22:46 | EMERGENCY ROOM VISIT NOTE ---
History First contact with patient: 18:02 Chief Complaint: ABDOMINAL PAIN Stated Complaint: STOMACH PAIN,NAUSEA Nursing Triage Summary: Pt presents with c/o diffuse abd pain, back pain, pain between shoulder blades that began this morning. No BM today, used an enema without relief. Nausea. Pt states, "It feels like there is something eating away at my stomach. I ate a lot of junk food last night and usually have reprecutions." History of Present Illness The patient is a 22 year old female who presents to the Emergency Room with complaints of generalized abdominal pain/cramping with pain extending into the middle back and intrascapular region. The patient also reports nausea and vomiting. The patient also reports no bowel movements in the past several days. She does report a history of constipation. 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 The patient denies any recent urinary symptoms. She has taken Pepto-Bismol without relief. Past menstruation was 2 weeks ago. The patient is status post tubal ligation , otherwise denies any prior history of abdominal surgeries. The patient reports that she did eat a lot of junk food last night that usually upsets her stomach. Last alcohol consumption was 4 days ago. She denies any significant alcohol, caffeine or NSAIDs use area she does report a prior history of acid reflux. She currently rates her discomfort a 10 out of 10. Review of Systems HEENT: Denies dizziness, visual problems, hearing loss, tinnitus. Denies difficulty swallowing or oral lesions. PULMONARY: Denies cough, shortness of breath, sputum production or hemoptysis. CARDIOVASCULAR: Denies chest pain, palpitations, dyspnea on exertion, orthopnea or peripheral edema. GASTROINTESTINAL: See history of present illness. GENITOURINARY: Denies dysuria, frequency, urgency or nocturia. NEUROLOGIC: Denies history of epilepsy, CVA, TIA or chronic headaches. MUSCULOSKELETAL: Denies history of joint tenderness/swelling. SKIN: Denies rashes or lesions. PSYCHIATRIC: History of depression. ENDOCRINE: Denies history of diabetes or thyroid disorders. Past Medical/Surgical History Medical Problems: (1) Abdominal pain (2) Arm pain (3) Calf pain (4) Calf pain (5) Chest pain (6) Depression (7) Hemorrhoids (8) Left shoulder strain (9) Left sided chest pain (10) Mood disorder (11) Post-dates (12) (13) Third trimester Family History Heart disease Hypertension Kidney disease Social History Smoking Status: Current Every Day Smoker Alcohol Use: none Drug Use: marijuana Marital Status: in relationship Housing Status: lives with family Occupation Status: unemployed Current/Historical Medications Scheduled Ondasetron Odt (Zofran Odt), 4 MG SL Q6H Physical Exam Vital Signs Date Time Temp Pulse Resp B/P (MAP) Pulse Ox O2 Delivery O2 Flow Rate FiO2 09/24/17 22:15 70 18 110/68 99 09/24/17 20:15 68 18 105/65 99 Room Air 09/24/17 17:56 37.0 66 18 119/77 100 Room Air Physical Exam CONSTITUTIONAL: Healthy and well nourished. Alert and oriented X 3 with flat affect. Patient appears in moderate discomfort from pain. Patient is holding an emesis bag as well. HEENT: Normocephalic, atraumatic. Pupils equal, round and reactive. No scleral icterus or conjunctival injection. OROPHARYNX: Mucous membranes are dry. No tonsillar hypertrophy or exudates. NECK: Full active range of motion without discomfort. RESPIRATORY: Clear to auscultation bilaterally with no wheezing, crackles, rhonchi or stridor. CARDIOVASCULAR: Regular rate and rhythm with no murmurs, rubs or gallops. GASTROINTESTINAL: Bowel sounds present in all quadrants. Patient has mostly epigastric and mild upper abdominal tenderness to palpation. Negative McBurney' s point tenderness. Negative CVA tenderness. No rigidity, guarding or rebound. MUSCULOSKELETAL: Full range of motion of all joints without discomfort. INTEGUMENTARY: No rash or other significant dermatologic conditions noted. HEMATOLOGIC: No ecchymosis or petechiae noted. NEUROLOGIC: Cranial nerves II-XII grossly intact. No focal neurologic deficits noted. Medical Decision & Procedures ER Provider Diagnostic Interpretation: An abdomen obstruction series with a PA chest. Does not show any bowel obstructions, free air or basilar lung consolidations. It is noted that the patient does have some stool in the ascending colon with no stool in the rectal vault. Radiologist report is as follows: ABDOMEN 2VIEW W/PA CHEST RTN CLINICAL HISTORY: ABDOMINAL PAIN/CONSTIPATION pain COMPARISON STUDY: 05/20/2017 FINDINGS: The soft tissues, psoas shadows, renal outlines and intestinal gas pattern appear normal. There is no evidence for bowel obstruction. There is no evidence for free intraperitoneal air. No abnormal abdominal calcifications are seen. A frontal view of the chest was performed and is unremarkable. IMPRESSION: Normal study. Right upper quadrant ultrasound does not show any evidence for cholecystitis or other acute findings. Radiologist report is as follows: ABDOMEN LIMITED (US) HISTORY: Pain. Nausea. Epigastric/RUQ pain. COMPARISON: None. FINDINGS: Pancreas: The pancreas demonstrates a normal echotexture. Liver: Mild fatty infiltration Gallbladder: No gallbladder wall thickening. No gallstones. CBD: 3 mm Right kidney: No hydronephrosis. IMPRESSION: Negative study. Mild fatty infiltration of liver. Laboratory Results 09/24/17 18:20 Red Blood Count 4.49, Mean Corpuscular Volume 90.6, Mean Corpuscular Hemoglobin 30.1, Mean Corpuscular Hemoglobin Concent 33.2, Mean Platelet Volume 10.4, Neutrophils (%) (Auto) 78.5, Lymphocytes (%) (Auto) 15.2, Monocytes (%) (Auto) 5.3, Eosinophils (%) (Auto) 0.6, Basophils (%) (Auto) 0.2, Neutrophils # (Auto) 10.39, Lymphocytes # (Auto) 2.01, Monocytes # (Auto) 0.70, Eosinophils # (Auto) 0.08, Basophils # (Auto) 0.03 09/24/17 18:20 09/24/17 19:40 Test 09/24/17 18:20 09/24/17 19:40 White Blood Count 13.24 K/uL (4.8-10.8) Red Blood Count 4.49 M/uL (4.2-5.4) Hemoglobin 13.5 g/dL (12.0-16.0) Hematocrit 40.7 % (37-47) Mean Corpuscular Volume 90.6 fL (80-100) Mean Corpuscular Hemoglobin 30.1 pg (25-34) Mean Corpuscular Hemoglobin Concent 33.2 g/dl (32-36) Platelet Count 267 K/uL (130-400) Mean Platelet Volume 10.4 fL (7.4-10.4) Neutrophils (%) (Auto) 78.5 % Lymphocytes (%) (Auto) 15.2 % Monocytes (%) (Auto) 5.3 % Eosinophils (%) (Auto) 0.6 % Basophils (%) (Auto) 0.2 % Neutrophils # (Auto) 10.39 K/uL (1.4-6.5) Lymphocytes # (Auto) 2.01 K/uL (1.2-3.4) Monocytes # (Auto) 0.70 K/uL (0.11-0.59) Eosinophils # (Auto) 0.08 K/uL (0-0.5) Basophils # (Auto) 0.03 K/uL (0-0.2) RDW Standard Deviation 46.6 fL (36.4-46.3) RDW Coefficient of Variation 14.2 % (11.5-14.5) Immature Granulocyte % (Auto) 0.2 % Immature Granulocyte # (Auto) 0.03 K/uL (0.00-0.02) Urine Color YELLOW Urine Appearance CLEAR (CLEAR) Urine pH 6.0 (4.5-7.5) Urine Specific [place]en 1.027 (1.000-1.030) Urine Protein NEG (NEG) Urine Glucose (UA) NEG (NEG) Urine Ketones NEG (NEG) Urine Occult Blood NEG (NEG) Urine Nitrite NEG (NEG) Urine Bilirubin NEG (NEG) Urine Urobilinogen NEG (NEG) Urine Leukocyte Esterase SMALL (NEG) Urine WBC (Auto) 10-30 /hpf (0-5) Urine RBC (Auto) 5-10 /hpf (0-4) Urine Hyaline Casts (Auto) 1-5 /lpf (0-5) Urine Epithelial Cells (Auto) >30 /lpf (0-5) Urine Bacteria (Auto) 1+ (NEG) Urine Test NEG (NEG) Anion Gap 4.0 mmol/L (3-11) Est Creatinine Clear Calc Drug Dose 131.2 ml/min Estimated GFR () 133.6 Estimated GFR (Non- 115.3 BUN/Creatinine Ratio 19.2 (10-20) Calcium Level 8.8 mg/dl (8.5-10.1) Total Bilirubin 0.2 mg/dl (0.2-1) Alanine Aminotransferase (ALT/SGPT) 29 U/L (12-78) Alkaline Phosphatase 91 U/L (45-117) Total Protein 7.6 gm/dl (6.4-8.2) Albumin 3.5 gm/dl (3.4-5.0) Lipase 174 U/L (73-393) Urine Opiates Screen NEG (NEG) Urine Methadone, Qualitative NEG (NEG) Urine Barbiturates NEG (NEG) Urine Phencyclidine (PCP) Level NEG (NEG) Ur Amphetamine/Methamphetamine NEG (NEG) MDMA (Ecstasy) Screen NEG (NEG) Urine Benzodiazepines Screen NEG (NEG) Urine Cocaine Metabolite NEG (NEG) Urine Marijuana (THC) POS (NEG) Direct Bilirubin mg/dl (0-0.2) Aspartate Amino Transf (AST/SGOT) 17 U/L (15-37) Chemistry Specimen Hemolysis The above labs were reviewed. The patient does have a mild leukocytosis with left shift and bandemia. Mcintosh labs were grossly normal. Urinalysis is not consistent with an infection. Urine drug screen is positive for marijuana. Medications Administered Medications (Trade) Dose Ordered Sig/Isa Route Start Time Stop Time Status Last Admin Dose Admin Ketorolac Tromethamine (Toradol Inj) 30 mg NOW STAT IV 09/24/17 18:11 09/24/17 18:14 DC 09/24/17 18:28 30 MG Ondansetron HCl (Zofran Inj) 4 mg NOW STAT IV 09/24/17 18:11 09/24/17 18:14 DC 09/24/17 18:27 4 MG Famotidine (Pepcid 20mg Iv Push) 20 mg ONE STAT IV 09/24/17 18:15 09/24/17 18:16 DC 09/24/17 18:29 20 MG Morphine Sulfate (MoRPHine SULFATE INJ) 4 mg NOW STAT IV 09/24/17 19:56 09/24/17 19:59 DC 09/24/17 20:13 4 MG Promethazine HCl 25 mg/Sodium Chloride 51 ml @ 204 mls/hr NOW STAT IV 09/24/17 19:56 09/24/17 20:10 DC 09/24/17 20:13 204 MLS/HR Ondansetron HCl (ZOFRAN ODT 4MG Home Pack) 1 homepack UD ONCE PO 09/24/17 22:00 09/24/17 22:01 DC 09/24/17 22:12 1 HOMEPACK ED Course Patient history and physical exam were performed. Nurse's notes were reviewed. Vital signs were reviewed and were normal. IV access was established, and labs were drawn. The patient was initially administered IV Toradol and Zofran for pain and nausea. X-rays of the abdomen and chest were normal. Labs were reviewed to show a mild leukocytosis with left shift. Remaining labs are otherwise grossly normal, including urinalysis. Urine drug screen is positive for marijuana. On reevaluating the patient, she was still complaining of significant pain and nausea, and was crying. The patient was administered IV morphine and Phenergan for pain and nausea. The case was further discussed with Dr. Oneil, ED attending physician, who suggested adding ultrasound studies. Ultrasound of the right upper quadrant was performed and was normal. I did discuss several different possibilities including gastric ulcer, biliary colic, constipation and other possible etiologies. At this point, I suggested trying magnesium citrate to purge the bowel. She was encouraged to follow-up with her PCP for further reevaluation and management. The patient was provided a home pack and prescription for Zofran ODT as needed for nausea. Return to the emergency department for any significantly worsening symptoms. The patient was happy with plan of care, voiced understanding of all discharge instructions, and rated her discomfort a 2 out of 10 at the time of discharge. Medical Decision See previous section. Workup today is not suggestive of acute cholecystitis, pancreatitis, UTI or bowel obstruction. The patient has no CVA tenderness to suggest pyelonephritis. She has no McBurney's point tenderness or lower abdominal tenderness to palpation to suggest appendicitis, diverticulitis or pelvic etiologies. [place] Drug Monitoring Program Search Results: patient reviewed within database, no issues identified, see additional documentation Medication Reconcilliation Current Medication List: was personally reviewed by mt Blood Pressure Screening Patient's blood pressure: Normal blood pressure Impression Primary Impression: Epigastric abdominal pain Departure Information Prescriptions Ondasetron Odt (ZOFRAN ODT) 4 Mg Tab 4 MG SL Q6H for Nausea, #10 TAB Prov: Jaxon Bermudez PA 09/24/17 Referrals Ruth Rossi D.O. (PCP) Patient Instructions My [facility]
== END 2017-09-24 22:21 | disposition home or self-care (01) ==
LOC: C.EDB 17:46 → C.EDC 22:21
DX: R10.13 Epigastric pain (principal); R11.2 Nausea with vomiting, unspecified; K59.00 Constipation, unspecified; K21.9 Gastro-esophageal reflux disease without esophagitis; F17.200 Nicotine dependence, unspecified, uncomplicated; F12.90 Cannabis use, unspecified, uncomplicated; Z82.49 Family history of ischemic heart disease and other diseases of the circulatory system; Z84.1 Family history of disorders of kidney and ureter

== ENCOUNTER 2017-09-27 19:44 | Emergency (ER) | payer OTHER ==
[~2017-09-27] VITALS: Ht 165.1 cm; Wt 90.7 kg
[~2017-09-27 19:44] MED LIST changes: +ONDA4TAB10 SL
[2017-09-27 19:48] VITALS: TEMP 36.4; Ht 165.1 cm; Wt 90.7 kg
[2017-09-27] MEDS ORDERED: MAGNESIUM CITRATE 296 ML/BTL PO ONE (20:15)
[2017-09-27 20:29] LABS: BASO % 0.2 %; BASO ABS # 0.02 K/uL (0-0.2); COMPLETE YES; HEMATOCRIT 36.2 % (37-47); IG% 0.3 %; LYMPH % 20.7 %; LYMPH ABS # 2.27 K/uL (1.2-3.4); MEAN CELL VOLUME 89.2 fL (80-100); MEAN CORPUSCULAR HGB CONC 33.7 g/dl (32-36); MONO % 5.9 %; NEUT % 71.9 %; PLATELET COUNT 249 K/uL (130-400); RED BLOOD COUNT 4.06 M/uL (4.2-5.4); WHITE BLOOD COUNT 10.94 K/uL (4.8-10.8)
[2017-09-27] MEDS ORDERED: DOCU100C PO (20:38)
[2017-09-27] MEDS ORDERED: POLY335019 PO (20:38)
[2017-09-27] MEDS ORDERED: SODIENE PR (20:38)
[2017-09-27] MEDS ORDERED: KETOROLAC TROMETHAMINE 30 MG/ML VIAL IV STA (20:40)
[2017-09-27 20:47] LABS: BUN/CREATININE RATIO 13.5 (10-20); CALCIUM 8.4 mg/dl (8.5-10.1); CREATININE 0.64 mg/dl (0.60-1.20); MAGNESIUM 2.2 mg/dl (1.8-2.4); POTASSIUM 3.8 mmol/L (3.5-5.1)
[2017-09-27 20:50] LABS: ALB/GLOB RATIO 0.9 (0.9-2)
--- NOTE | 2017-09-27 21:07 | EMERGENCY ROOM VISIT NOTE ---
History First contact with patient: 19:53 Chief Complaint: CONSTIPATION Stated Complaint: CONSTIPATED,SEVERE PAIN Nursing Triage Summary: Patient reports that her last bowel movement is unknown, states "It was definately before Saturday." Patient reports she was in the ED on Saturday and "left without any diagnosis." Patient reports using Miralax and enemas at home with no relief. Patient reports intermittent severe pains in her abdomen; generalized pain; with the pain comes nausea, intermittent vomiting. History of Present Illness The patient is a 22 year old female who presents to the Emergency Room with complaints of severe abdominal pain and constipation for the last several days. The patient's last bowel movement was 09/23. She was seen here on 09/24 with abdominal pain. She was told to take MiraLAX a stool softener, which she has been doing with no relief. The patient was taking Tylenol for the pain with no relief. She denies any nausea or vomiting. The patient does have a history of constipation. Review of Systems 10 system review performed and negative unless noted in HPI or below Past Medical/Surgical History Medical Problems: (1) Abdominal pain (2) Arm pain (3) Calf pain (4) Calf pain (5) Chest pain (6) Depression (7) Hemorrhoids (8) Left shoulder strain (9) Left sided chest pain (10) Mood disorder (11) Post-dates (12) (13) Third trimester Family History Heart disease Hypertension Kidney disease Social History Smoking Status: Never Smoker Alcohol Use: none Drug Use: marijuana Marital Status: in relationship Housing Status: lives with family Occupation Status: unemployed Current/Historical Medications Scheduled Ciprofloxacin Hcl (Cipro), 500 MG PO BID Ondasetron Odt (Zofran Odt), 4 MG SL Q6H Scheduled PRN Docusate Sodium (Stool Softener), 100 MG PO TID PRN for Constipation Polyethylene Glycol 3350 (Miralax), 17 GM PO DAILY PRN for Constipation Sodium Phosphate/Biphosphate (Fleet Enema), 1 EA AK DAILY PRN for Constipation Physical Exam Vital Signs Date Time Temp Pulse Resp B/P (MAP) Pulse Ox O2 Delivery O2 Flow Rate FiO2 09/27/17 22:56 63 16 109/59 99 Room Air 09/27/17 20:47 77 22 115/59 97 Room Air 09/27/17 19:48 36.4 75 16 139/79 98 Room Air Physical Exam VITALS: Vitals are noted on the nurse's note and reviewed by myself. Vital signs stable. GENERAL: 22-year-old female, in no acute distress, nondiaphoretic, well- developed well-nourished. SKIN: The skin was without rashes, erythema, edema, or bruising. HEAD: Normocephalic atraumatic. HEART: Regular rate and rhythm without murmurs gallops or rubs. LUNGS: Clear to auscultation bilaterally without wheezes, rales or rhonchi. No accessory muscle use. ABDOMEN: Positive bowel sounds x 4.Soft, mild, diffuse tenderness to palpation. No focal tenderness. No guarding or rebound tenderness. MUSCULOSKELETAL: No muscle atrophy, erythema, or edema noted. Strength 5/5 throughout. NEURO: Patient was alert and oriented to person place and time. Normal sensation to touch. No focal neurological deficits. Medical Decision & Procedures ER Provider Diagnostic Interpretation: CT abdomen and pelvis IMPRESSION: 1. Peripherally enhancing cystic structure of the left adnexum measuring 2.5 cm suggests involuting follicle with mild associated likely physiologic free pelvic fluid. 2. A few loops of nondilated ileum are fluid-filled with scattered air-fluid levels which may be physiologic or reflect mild enteritis. 3. No bowel obstruction. 4. Normal appendix. Electronically signed by: Olman Hunt M.D. 09/27/2017 10:38 PM Dictated Date/Time: 09/27/2017 10:30 PM The status of this report is Signed. Draft = Not yet reviewed or approved by Radiologist. Signed = Reviewed and approved by Radiologist. Laboratory Results 09/27/17 20:12 Red Blood Count 4.06, Mean Corpuscular Volume 89.2, Mean Corpuscular Hemoglobin 30.0, Mean Corpuscular Hemoglobin Concent 33.7, Mean Platelet Volume 10.0, Neutrophils (%) (Auto) 71.9, Lymphocytes (%) (Auto) 20.7, Monocytes (%) (Auto) 5.9, Eosinophils (%) (Auto) 1.0, Basophils (%) (Auto) 0.2, Neutrophils # (Auto) 7.86, Lymphocytes # (Auto) 2.27, Monocytes # (Auto) 0.65, Eosinophils # (Auto) 0.11, Basophils # (Auto) 0.02 09/27/17 20:12 Test 09/27/17 20:12 09/27/17 22:10 White Blood Count 10.94 K/uL (4.8-10.8) Red Blood Count 4.06 M/uL (4.2-5.4) Hemoglobin 12.2 g/dL (12.0-16.0) Hematocrit 36.2 % (37-47) Mean Corpuscular Volume 89.2 fL (80-100) Mean Corpuscular Hemoglobin 30.0 pg (25-34) Mean Corpuscular Hemoglobin Concent 33.7 g/dl (32-36) Platelet Count 249 K/uL (130-400) Mean Platelet Volume 10.0 fL (7.4-10.4) Neutrophils (%) (Auto) 71.9 % Lymphocytes (%) (Auto) 20.7 % Monocytes (%) (Auto) 5.9 % Eosinophils (%) (Auto) 1.0 % Basophils (%) (Auto) 0.2 % Neutrophils # (Auto) 7.86 K/uL (1.4-6.5) Lymphocytes # (Auto) 2.27 K/uL (1.2-3.4) Monocytes # (Auto) 0.65 K/uL (0.11-0.59) Eosinophils # (Auto) 0.11 K/uL (0-0.5) Basophils # (Auto) 0.02 K/uL (0-0.2) RDW Standard Deviation 46.2 fL (36.4-46.3) RDW Coefficient of Variation 14.1 % (11.5-14.5) Immature Granulocyte % (Auto) 0.3 % Immature Granulocyte # (Auto) 0.03 K/uL (0.00-0.02) Anion Gap 4.0 mmol/L (3-11) Est Creatinine Clear Calc Drug Dose 150.8 ml/min Estimated GFR () 144.8 Estimated GFR (Non- 124.9 BUN/Creatinine Ratio 13.5 (10-20) Calcium Level 8.4 mg/dl (8.5-10.1) Magnesium Level 2.2 mg/dl (1.8-2.4) Total Bilirubin 0.2 mg/dl (0.2-1) Aspartate Amino Transf (AST/SGOT) 10 U/L (15-37) Alanine Aminotransferase (ALT/SGPT) 23 U/L (12-78) Alkaline Phosphatase 84 U/L (45-117) Total Protein 6.8 gm/dl (6.4-8.2) Albumin 3.2 gm/dl (3.4-5.0) Globulin 3.6 gm/dl (2.5-4.0) Albumin/Globulin Ratio 0.9 (0.9-2) Lipase 153 U/L (73-393) Urine Color YELLOW Urine Appearance CLEAR (CLEAR) Urine pH 7.0 (4.5-7.5) Urine Specific [place]ount 1.018 (1.000-1.030) Urine Protein NEG (NEG) Urine Glucose (UA) NEG (NEG) Urine Ketones NEG (NEG) Urine Occult Blood NEG (NEG) Urine Nitrite NEG (NEG) Urine Bilirubin NEG (NEG) Urine Urobilinogen NEG (NEG) Urine Leukocyte Esterase MODERATE (NEG) Urine WBC (Auto) 10-30 /hpf (0-5) Urine RBC (Auto) 0-4 /hpf (0-4) Urine Hyaline Casts (Auto) 1-5 /lpf (0-5) Urine Epithelial Cells (Auto) >30 /lpf (0-5) Urine Bacteria (Auto) 1+ (NEG) Urine Yeast (Auto) (NONE PRSENT) Urine Test NEG (NEG) Medications Administered Medications (Trade) Dose Ordered Sig/Isa Route Start Time Stop Time Status Last Admin Dose Admin Magnesium Citrate (Citrate Of Magnesia Soln) 296 ml NOW ONCE PO 09/27/17 20:15 09/27/17 20:16 DC 09/27/17 20:32 296 ML Ketorolac Tromethamine (Toradol Inj) 30 mg NOW STAT IV 09/27/17 20:40 09/27/17 20:41 DC 09/27/17 20:46 30 MG Morphine Sulfate (MoRPHine SULFATE INJ) 4 mg Q1H PRN IV 09/27/17 22:00 09/28/17 00:05 DC 09/27/17 22:06 4 MG Ciprofloxacin (Cipro Tab) 500 mg NOW STAT PO 09/27/17 23:07 09/27/17 23:08 DC 09/27/17 23:22 500 MG Ondansetron HCl (ZOFRAN ODT 4MG Home Pack) 1 homepack UD ONCE PO 09/27/17 23:15 09/27/17 23:16 DC 09/27/17 23:22 1 HOMEPACK ED Course Patient was seen and examined Vital signs including blood pressure were reviewed medications list was verified with patient Labs were obtained, and a saline lock was established The patient was given magnesium citrate. She was also given Toradol 30 mg IV for pain. Imaging was performed and reviewed The patient requesting more pain medication. She was given 1 dose of morphine 4 mg IV We discussed the results of her workup. She voiced understanding. A home pack of Zofran was ordered. I reviewed discharge instructions the patient. They voiced understanding and had no further questions. Medical Decision DIFFERENTIAL DIAGNOSIS: Gastroenteritis, Hepatitis, cholecystitis, cholangitis, biliary colic, pancreatitis, appendicitis, inguinal hernia, nephrolithiasis, inflammatory bowel disease, mesenteric adenitis, peptic ulcer disease, GERD, gastritis, pancreatitis,, bowel obstruction, splenic infarct, diverticulitis, mesenteric ischemia, metabolic, peritonitis, among others. This patient is a 22-year-old female that presents to the emergency department with complaints of significant abdominal pain and constipation. Her past workup was reviewed. There is minor leukocytosis. Imaging was unremarkable. On exam today, she has mild diffuse tenderness of the abdomen. A rectal exam was performed. No fecal impaction was noted. Labs reveal improved leukocytosis. It does appear that she has a urinary tract infection. No signs of significant constipation per CT. She does have some loops of bowel that are fluid filled. This is possibly secondary to enteritis. She also has a small ovarian cyst. There is no concern for ovarian torsion. She is nontoxic in appearance. She is afebrile. I believe the patient is stable to be discharged home. She will be sent home on a course of Cipro for UTI. She was also given Zofran for nausea. She will take Tylenol as needed for pain. Advised that she needs to follow up with her primary care physician addition to her [employer]. She was in agreement with this plan, was discharged in good condition This chart was completed in part utilizing [employer] Voice Recognition software. Attempts were made to minimize the grammatical errors, random word insertions, pronoun errors and incomplete sentences. Any formal questions or concerns about the content, text or information contained within the body of this dictation should be directly addressed to the provider for clarification. Impression Primary Impression: Abdominal pain Additional Impression: UTI (urinary tract infection) Departure Information Dispostion Home / Self-Care Condition GOOD Prescriptions Ondasetron Odt (ZOFRAN ODT) 4 Mg Tab 4 MG SL Q6H for Nausea, #20 TAB Prov: Gela Torres PA-C 09/27/17 Ciprofloxacin Hcl (CIPRO) 500 Mg Tab 500 MG PO BID for 7 Days, #14 TAB Prov: Gela Torres PA-C 09/27/17 Referrals Ruth Rossi D.O. (PCP) Forms HOME CARE DOCUMENTATION FORM, IMPORTANT VISIT INFORMATION Patient Instructions My [facility] Additional Instructions You were evaluated in the emergency department for abdominal pain. This is likely due to a GI illness. Please follow a bland diet. I would recommend clear liquids for this evening such as broths, tobi mónica, water and Gatorade You also have a urinary tract infection. Please take the entire course of antibiotics. Zofran 1 tab every 6 hours as needed for nausea. It is very important for you to follow-up with your primary care physician within the next 2 or 3 days for a recheck. Please return to the emergency department with any new, worsening or concerning symptoms Problem Qualifiers
[2017-09-27] MEDS ORDERED: MoRPHine SULFATE 4 MG/ML 1 ML CARP\\VIAL IV PRN (22:00)
[2017-09-27] MEDS ORDERED: OPTIRAY 320 IV PRN (22:00)
[2017-09-27 22:27] LABS: URINE APPEARANCE CLEAR (CLEAR); URINE BILIRUBIN NEG (NEG); URINE COLOR YELLOW; URINE EPITHELIAL CELL AUTO >30 /lpf (0-5); URINE NITRITE NEG (NEG); URINE SPECIFIC GRAVITY 1.018 (1.000-1.030); UROBILINOGEN NEG (NEG)
[2017-09-27 22:30] LABS: MANUAL MICROSCOPIC REQUIRED? NO; REVIEW REQ? YES
--- NOTE | 2017-09-27 22:39 | DIAGNOSTIC IMAGING REPORT ---
ABDOMEN AND PELVIS CT WITH IV CONTRAST CT DOSE: 845.96 mGycm HISTORY: Acute severe generalized abdominal pain severe abd pain ? constipation vs SBO TECHNIQUE: Multiaxial CT images of the abdomen and pelvis were performed following the use of intravenous contrast. A dose lowering technique was utilized adhering to the principles of ALARA. COMPARISON STUDY: CT abdomen and pelvis 08/02/2015. FINDINGS: Lung bases are clear. No pneumatosis or pneumoperitoneum. Imaged inferior cardiac chambers are unremarkable. The liver, gallbladder, spleen, pancreas and adrenal glands are within normal limits. Kidneys, ureters and urinary bladder are unremarkable. The previously noted 2 mm calculus of the right kidney is not identified on this study. Mild free pelvic fluid. Uterus and right adnexum are unremarkable. Peripherally enhancing cystic structure of the left adnexum is seen, 2.5 x 1.7 cm. Aorta is normal in course and caliber. No bulky adenopathy. No bowel obstruction or focal bowel wall thickening. Nondilated fluid-filled loops of the ileum are noted with a few scattered air-fluid levels. Normal appendix. Soft tissues are unremarkable. Bones appear intact. Bone on of the proximal right femur. IMPRESSION: 1. Peripherally enhancing cystic structure of the left adnexum measuring 2.5 cm suggests involuting follicle with mild associated likely physiologic free pelvic fluid. 2. A few loops of nondilated ileum are fluid-filled with scattered air-fluid levels which may be physiologic or reflect mild enteritis. 3. No bowel obstruction. 4. Normal appendix. Electronically signed by: Olman Hunt M.D. 09/27/2017 10:38 PM Dictated Date/Time: 09/27/2017 10:30 PM
[2017-09-27 22:56] VITALS: BP 109/59; PULSE 63; O2SAT 99
[2017-09-27] MEDS ORDERED: CIPROFLOXACIN 500 MG TAB PO STA (23:07)
[2017-09-27] MEDS ORDERED: ONDA4TAB10 SL (23:15)
[2017-09-27] MEDS ORDERED: ONDANSETRON HOME PACK 4MG OD TAB PO ONE (23:15)
[2017-09-27] MEDS ORDERED: CIPR-255 PO (23:15)
== END 2017-09-27 23:25 | disposition home or self-care (01) ==
LOC: C.EDB 19:45
DX: R10.84 Generalized abdominal pain (principal); N39.0 Urinary tract infection, site not specified; F32.9 Major depressive disorder, single episode, unspecified; Z82.49 Family history of ischemic heart disease and other diseases of the circulatory system; Z84.1 Family history of disorders of kidney and ureter

== ENCOUNTER 2017-10-01 09:15 | Emergency (ER) | payer OTHER ==
[~2017-10-01] VITALS: Ht 165.1 cm; Wt 91.0 kg
[2017-10-01 09:15] VITALS: BP 103/68; PULSE 65; TEMP 36.9; O2SAT 98; Ht 165.1 cm; Wt 91.0 kg
[~2017-10-01 09:15] MED LIST changes: -ACET-1256 PO; +CIPR-255 PO; +DOCU100C PO; -IBUP-1050 PO; +POLY335019 PO; +SODIENE PR
[2017-10-01] MEDS ORDERED: DICYCLOMINE HCL 20 MG TAB PO STA (09:59)
[2017-10-01] MEDS ORDERED: PANTOprazole INJ 40 MG in SYRINGE 0 ML IV ONE (10:00)
[2017-10-01 10:26] LABS: BASO % 0.3 %; BASO ABS # 0.03 K/uL (0-0.2); COMPLETE YES; EOS % 1.2 %; HEMATOCRIT 38.9 % (37-47); IG% 0.2 %; LYMPH ABS # 2.02 K/uL (1.2-3.4); MEAN CELL VOLUME 90.7 fL (80-100); MEAN CORPUSCULAR HEMOGLOBIN 30.3 pg (25-34); MEAN CORPUSCULAR HGB CONC 33.4 g/dl (32-36); MONO % 5.5 %; NEUT % 72.8 %; PLATELET COUNT 246 K/uL (130-400); RED BLOOD COUNT 4.29 M/uL (4.2-5.4)
[2017-10-01 10:27] LABS: URINE APPEARANCE CLEAR (CLEAR); URINE BILIRUBIN NEG (NEG); URINE COLOR YELLOW; URINE EPITHELIAL CELL AUTO >30 /lpf (0-5); URINE NITRITE NEG (NEG); URINE SPECIFIC GRAVITY 1.024 (1.000-1.030); UROBILINOGEN NEG (NEG); ZZUR CULT IF INDIC CLEAN CATCH NO
[2017-10-01 10:29] LABS: MANUAL MICROSCOPIC REQUIRED? NO; REVIEW REQ? NO
[2017-10-01 10:45] LABS: BLOOD UREA NITROGEN 11 mg/dl (7-18); BUN/CREATININE RATIO 17.1 (10-20); CALCIUM 9.2 mg/dl (8.5-10.1); CARBON DIOXIDE 26 mmol/L (21-32); CHLORIDE 107 mmol/L (98-107); CREATININE 0.66 mg/dl (0.60-1.20); GLUCOSE 88 mg/dl (70-99); POTASSIUM 4.3 mmol/L (3.5-5.1); SODIUM 139 mmol/L (136-145)
[2017-10-01 10:48] LABS: ALKALINE PHOSPHATASE 93 U/L (45-117); ALT/SGPT 28 U/L (12-78); AST/SGOT 10 U/L (15-37)
--- NOTE | 2017-10-01 10:58 | EMERGENCY ROOM VISIT NOTE ---
History First contact with patient: 09:19 Chief Complaint: ABDOMINAL PAIN Stated Complaint: ABDOMINAL PAIN Nursing Triage Summary: Patient presents to ER via EMS. Patient reports left abdomen pain and back. She states "the pain moves everywhere. I goes to my abdomen, back, neck down to my stomach. 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 History of Present Illness The patient is a 22 year old female who presents to the Emergency Room via EMS with complaints of persistent left-sided abdominal pain which is now radiates to her back. The patient has been seen here on several occasions over the last week for the same symptoms. The patient states that she was given Cipro for a possible UTI but she did not take it since she does not think she has a UTI. The patient also states that she was told she was constipated the first time she was in here but then she was taking laxatives and gave herself 2 enemas and when she came in here on Saturday they told her she was not constipated anymore. The patient denies any fever or chills. The patient states that she has pain in the left side of her abdomen which radiates down as well as up into her chest and arm. The patient was instructed to follow-up with gastroenterology after her ER visit since they did not find anything but she states today she called her family doctor and they could not get her in until . Therefore she called the ambulance. Review of Systems 10 system review was performed and was negative unless stated otherwise history of present illness. Past Medical/Surgical History Medical Problems: (1) Abdominal pain (2) Arm pain (3) Calf pain (4) Calf pain (5) Chest pain (6) Depression (7) Hemorrhoids (8) Left shoulder strain (9) Left sided chest pain (10) Mood disorder (11) Post-dates (12) (13) Third trimester Family History Heart disease Hypertension Kidney disease Social History Smoking Status: Current Every Day Smoker Alcohol Use: none Drug Use: marijuana Marital Status: in relationship Housing Status: lives with family Occupation Status: unemployed Current/Historical Medications Scheduled Ciprofloxacin Hcl (Cipro), 500 MG PO BID Ondasetron Odt (Zofran Odt), 4 MG SL Q6H Scheduled PRN Docusate Sodium (Stool Softener), 100 MG PO TID PRN for Constipation Polyethylene Glycol 3350 (Miralax), 17 GM PO DAILY PRN for Constipation Sodium Phosphate/Biphosphate (Fleet Enema), 1 EA KS DAILY PRN for Constipation Physical Exam Vital Signs Date Time Temp Pulse Resp B/P (MAP) Pulse Ox O2 Delivery O2 Flow Rate FiO2 10/01/17 09:15 36.9 65 18 103/68 98 Room Air Physical Exam GENERAL: 22-year-old white female is rolling on the stretcher stating she is in extreme pain. MENTAL STATUS: Alert and oriented 3. The patient's disposition is way out of proportion to her physical findings. MOUTH: Mucosa is moist NECK: Supple, no lymphadenopathy noted. No carotid bruits noted. LUNGS: Clear auscultation without wheezes rales or rhonchi. CARDIAC: Regular rate and rhythm without murmur. Pulses is full and equal throughout. BACK: No CVA tenderness noted. ABDOMEN: Positive bowel sounds all 4 quadrants. When I palpated the patient's abdomen she was rolling around she did not seem to have any increased pain. When she Was examining her belly she then had increased pain in the left upper quadrant on palpation. No organomegaly or masses are noted. RECTAL: Anal sphincter tone intact. No internal masses noted. Stool guaiac was negative. EXTREMITIES: No cyanosis or edema noted. Medical Decision & Procedures Laboratory Results 10/01/17 10:12 Red Blood Count 4.29, Mean Corpuscular Volume 90.7, Mean Corpuscular Hemoglobin 30.3, Mean Corpuscular Hemoglobin Concent 33.4, Mean Platelet Volume 10.0, Neutrophils (%) (Auto) 72.8, Lymphocytes (%) (Auto) 20.0, Monocytes (%) (Auto) 5.5, Eosinophils (%) (Auto) 1.2, Basophils (%) (Auto) 0.3, Neutrophils # (Auto) 7.35, Lymphocytes # (Auto) 2.02, Monocytes # (Auto) 0.56, Eosinophils # (Auto) 0.12, Basophils # (Auto) 0.03 10/01/17 10:12 Test 10/01/17 10:12 White Blood Count 10.10 K/uL (4.8-10.8) Red Blood Count 4.29 M/uL (4.2-5.4) Hemoglobin 13.0 g/dL (12.0-16.0) Hematocrit 38.9 % (37-47) Mean Corpuscular Volume 90.7 fL (80-100) Mean Corpuscular Hemoglobin 30.3 pg (25-34) Mean Corpuscular Hemoglobin Concent 33.4 g/dl (32-36) Platelet Count 246 K/uL (130-400) Mean Platelet Volume 10.0 fL (7.4-10.4) Neutrophils (%) (Auto) 72.8 % Lymphocytes (%) (Auto) 20.0 % Monocytes (%) (Auto) 5.5 % Eosinophils (%) (Auto) 1.2 % Basophils (%) (Auto) 0.3 % Neutrophils # (Auto) 7.35 K/uL (1.4-6.5) Lymphocytes # (Auto) 2.02 K/uL (1.2-3.4) Monocytes # (Auto) 0.56 K/uL (0.11-0.59) Eosinophils # (Auto) 0.12 K/uL (0-0.5) Basophils # (Auto) 0.03 K/uL (0-0.2) RDW Standard Deviation 47.0 fL (36.4-46.3) RDW Coefficient of Variation 14.3 % (11.5-14.5) Immature Granulocyte % (Auto) 0.2 % Immature Granulocyte # (Auto) 0.02 K/uL (0.00-0.02) Urine Color YELLOW Urine Appearance CLEAR (CLEAR) Urine pH 7.0 (4.5-7.5) Urine Specific [place] 1.024 (1.000-1.030) Urine Protein NEG (NEG) Urine Glucose (UA) NEG (NEG) Urine Ketones NEG (NEG) Urine Occult Blood TRACE (NEG) Urine Nitrite NEG (NEG) Urine Bilirubin NEG (NEG) Urine Urobilinogen NEG (NEG) Urine Leukocyte Esterase NEG (NEG) Urine WBC (Auto) 1-5 /hpf (0-5) Urine RBC (Auto) 0-4 /hpf (0-4) Urine Hyaline Casts (Auto) 0 /lpf (0-5) Urine Epithelial Cells (Auto) >30 /lpf (0-5) Urine Bacteria (Auto) NEG (NEG) Anion Gap 6.0 mmol/L (3-11) Est Creatinine Clear Calc Drug Dose 146.5 ml/min Estimated GFR () 143.3 Estimated GFR (Non- 123.6 BUN/Creatinine Ratio 17.1 (10-20) Calcium Level 9.2 mg/dl (8.5-10.1) Total Bilirubin 0.2 mg/dl (0.2-1) Direct Bilirubin < 0.1 mg/dl (0-0.2) Aspartate Amino Transf (AST/SGOT) 10 U/L (15-37) Alanine Aminotransferase (ALT/SGPT) 28 U/L (12-78) Alkaline Phosphatase 93 U/L (45-117) Total Protein 7.3 gm/dl (6.4-8.2) Albumin 3.4 gm/dl (3.4-5.0) Lipase 170 U/L (73-393) Medications Administered Medications (Trade) Dose Ordered Sig/Isa Route Start Time Stop Time Status Last Admin Dose Admin Pantoprazole Sodium 40 mg/ Syringe 10 ml @ 5 mls/min NOW ONCE IV 10/01/17 10:00 10/01/17 10:02 DC 10/01/17 10:20 5 MLS/MIN Dicyclomine HCl (Bentyl Tab) 20 mg NOW STAT PO 10/01/17 09:59 10/01/17 10:02 DC 10/01/17 10:20 20 MG ED Course The patient was evaluated. The patient's EMR medication list were reviewed. IV access was obtained The patient was seen here on 2 occasions over the past week. Her laboratory findings were improved her last visit here on Saturday which was 3 days ago. She had a CT of the abdomen and pelvis which did not reveal any findings specific to her pain. She does have a small left ovarian cyst. There is no evidence of kidney stones. No evidence of obstruction, diverticulitis or appendicitis. Her urinalysis did reveal some bacteria and leukocytes but this was not sent for culture. The patient did not take the Cipro therefore we will repeat the urinalysis. CBC and differential, renal profile LFTs and lipase levels were ordered. Also reviewed and were unremarkable. Urinalysis was negative. I talked with case management who will try and get a referral to gastroenterology. When I went back into the patient to inform her of the findings she was sitting comfortablytexting on her phone. She refused to talk to me. I told her that the case coordinator will be in to talk to her about setting up an appointment with gastroenterology. She continued to be nonverbal. The patient was discharged home in stable condition. Medical Decision The patient has already had a CT scan done as well as labs without any findings in the past. I did repeat her labs which were again negative. Her urinalysis was negative. Her symptoms may be psychosomatic but I feel she does need to see gastroenterology to confirm no other diagnostic imaging or testing is warranted. Medication Reconcilliation Current Medication List: was personally reviewed by me Blood Pressure Screening Patient's blood pressure: Normal blood pressure Impression Primary Impression: Left upper quadrant pain Departure Information Dispostion Home / Self-Care Condition GOOD Referrals Ruth Rossi D.O. (PCP) Forms HOME CARE DOCUMENTATION FORM, IMPORTANT VISIT INFORMATION Patient Instructions Abdominal Pain - [facility], [facility] Additional Instructions Recommend avoiding acidic, spicy or fatty foods. Take [id number] Prilosec , Prevacid or Nexium once daily in the morning. Also take Zantac 150 mg at bedtime. Appointment with gastroenterology for further evaluation of persistent abdominal pain.
== END 2017-10-01 11:07 | disposition home or self-care (01) ==
LOC: EDBD 09:15 → C.EDA 09:16
DX: R10.12 Left upper quadrant pain (principal); N83.202 Unspecified ovarian cyst, left side; F32.9 Major depressive disorder, single episode, unspecified; F17.200 Nicotine dependence, unspecified, uncomplicated; Z82.49 Family history of ischemic heart disease and other diseases of the circulatory system; Z84.1 Family history of disorders of kidney and ureter

== ENCOUNTER 2017-12-31 11:01 | Emergency (ER) | payer OTHER ==
[~2017-12-31] VITALS: Ht 165.1 cm; Wt 89.9 kg
[2017-12-31 11:06] VITALS: TEMP 36.8; Ht 165.1 cm; Wt 89.9 kg
[2017-12-31 11:43] LABS: BASO % 0.3 %; BASO ABS # 0.04 K/uL (0-0.2); EOS % 0.8 %; HEMATOCRIT 38.6 % (37-47); HEMOGLOBIN 13.1 g/dL (12.0-16.0); IG# 0.02 K/uL (0.00-0.02); LYMPH % 21.9 %; LYMPH ABS # 2.76 K/uL (1.2-3.4); MEAN CELL VOLUME 89.8 fL (80-100); MEAN CORPUSCULAR HEMOGLOBIN 30.5 pg (25-34); MEAN CORPUSCULAR HGB CONC 33.9 g/dl (32-36); MEAN PLATELET VOLUME 9.8 fL (7.4-10.4); MONO % 4.4 %; MONO ABS # 0.56 K/uL (0.11-0.59); NEUT % 72.4 %; NEUT ABS # 9.11 K/uL (1.4-6.5); PLATELET COUNT 268 K/uL (130-400); RED CELL DISTRIBUTION WIDTH CV 13.9 % (11.5-14.5); RED CELL DISTRIBUTION WIDTH SD 45.6 fL (36.4-46.3); WHITE BLOOD COUNT 12.59 K/uL (4.8-10.8)
[2017-12-31 11:52] LABS: INR 0.9 (0.9-1.1); PTT PATIENT 29.2 SECONDS (21.0-31.0)
--- NOTE | 2017-12-31 11:56 | EMERGENCY ROOM VISIT NOTE ---
History First contact with patient: 11:11 Chief Complaint: RIB PAIN Stated Complaint: LUMP SIZE OF FIST ON LEFT UPPER RIB CAGE ACHY PAIN History of Present Illness The patient is a 22 year old female who presents to the Emergency Room via private vehicle referred by family doctor with complaints of "lump size of cyst on left upper rib cage/achy pain". The patient states that for the past 2 months she has experienced small lumps underneath the left chin of which were evaluated this past week by the family doctor via ultrasound and blood work. She is unsure of these results. She states that upon awakening this morning she notes that she noticed a lump in the left upper quadrant that when she presses makes her feel nauseous. She states that she has body aches, feels winded and bruised throughout her whole body. She also notes a sensation of the stomach feels tight. She denies any true pain. She states that when she called her family doctor about the small lump that she can feel the left upper quadrant they referred her here for further evaluation and management. Review of Systems A complete 10-point Review of Systems was discussed with the patient, with pertinent positives and negatives listed in the History of Present Illness. All remaining Review of Systems questions can be considered negative unless otherwise specified. Past Medical/Surgical History Medical Problems: (1) Abdominal pain (2) Arm pain (3) Calf pain (4) Calf pain (5) Chest pain (6) Depression (7) Hemorrhoids (8) Left shoulder strain (9) Left sided chest pain (10) Mood disorder (11) Post-dates (12) (13) Third trimester Family History Heart disease Hypertension Kidney disease Diabetes, Cancer Social History Smoking Status: Current Every Day Smoker Alcohol Use: none Drug Use: marijuana Marital Status: in relationship Housing Status: lives with family Occupation Status: unemployed Current/Historical Medications No Active Prescriptions or Reported Meds Physical Exam Vital Signs Date Time Temp Pulse Resp B/P (MAP) Pulse Ox O2 Delivery O2 Flow Rate FiO2 12/31/17 11:06 36.8 84 18 140/89 97 Room Air Physical Exam VITAL SIGNS - Vital signs and nursing notes were reviewed. Stable. GENERAL - 22-year-old female appearing her stated age who is in no acute distress. Non toxic in appearance. Communicates well with provider and answers questions appropriately. SKIN - Without rashes. HEAD - NC/AT. EYES - PERRL with EOMI bilaterally. Sclera anicteric. EARS - No deformities of external structures noted on gross examination bilaterally. No pain elicited with palpation of the tragus bilaterally. External auditory canals without discharge or otorrhea. Tympanic membranes pearly bermudez without retraction or bulging. No fluid or purulent material visualized behind the TM. Handle of malleus, umbo, cone of light, pars tensa/ flaccid all easily visualized. NOSE - Midline and without cyanosis. No epistaxis or purulent drainage noted. MOUTH/OROPHARYNX - Without perioral cyanosis. Intraoral exam unremarkable. There are small lymph nodes suspected enlarged on the left side just inferior to the chin. NECK - Neck with FROM. Supple to palpation. No lymphadenopathy noted. No nuchal rigidity. LUNGS - Chest wall symmetric without accessory muscle use, intercostals retractions, or central cyanosis. Normal vesicular breath sounds CTA B/L. No wheezes, rales, or rhonchi appreciated. CARDIAC - RRR with S1/S2. No murmur, rubs, or gallops appreciated. ABDOMEN - Abdominal contour normal without pulsations or visible masses. BS normoactive all four quadrants. Slight tenderness to palpation in the left upper quadrant in the soft tissues. There is a soft palpable mass in the soft tissues. No deep tenderness noted. No tenderness, hepatosplenomegaly, or ascites noted. EXTREMITIES - No clubbing or peripheral cyanosis. No pretibial edema present. + 5/5 strength noted in UE/LE bilaterally. NEUROLOGIC - Cranial nerves II through XII grossly intact. Sensory intact to light touch throughout. PSYCH - A&O, and cooperates fully with examiner. Pt is very pleasant and interacts well with examiner. Medical Decision & Procedures ER Provider Diagnostic Interpretation: L EXTREMITY NONVASCULAR LIMITED CLINICAL HISTORY: LUQ soft tissue lump. Mass TECHNIQUE: Survey ultrasound left abdomen COMPARISON STUDY: None FINDINGS: Normal ultrasound of the anterior abdominal wall. No evidence for mass or collection by ultrasound criteria IMPRESSION: Normal study. The above report was generated using voice recognition software. It may contain grammatical, syntax or spelling errors. Electronically signed by: Artem Jaime M.D. 12/31/2017 12:15 PM Dictated Date/Time: 12/31/2017 12:14 PM Laboratory Results 12/31/17 11:32 Red Blood Count 4.30, Mean Corpuscular Volume 89.8, Mean Corpuscular Hemoglobin 30.5, Mean Corpuscular Hemoglobin Concent 33.9, Mean Platelet Volume 9.8, Neutrophils (%) (Auto) 72.4, Lymphocytes (%) (Auto) 21.9, Monocytes (%) (Auto) 4.4, Eosinophils (%) (Auto) 0.8, Basophils (%) (Auto) 0.3, Neutrophils # (Auto) 9.11, Lymphocytes # (Auto) 2.76, Monocytes # (Auto) 0.56, Eosinophils # (Auto) 0.10, Basophils # (Auto) 0.04 12/31/17 11:32 Test 12/31/17 11:32 White Blood Count 12.59 K/uL (4.8-10.8) Red Blood Count 4.30 M/uL (4.2-5.4) Hemoglobin 13.1 g/dL (12.0-16.0) Hematocrit 38.6 % (37-47) Mean Corpuscular Volume 89.8 fL (80-100) Mean Corpuscular Hemoglobin 30.5 pg (25-34) Mean Corpuscular Hemoglobin Concent 33.9 g/dl (32-36) Platelet Count 268 K/uL (130-400) Mean Platelet Volume 9.8 fL (7.4-10.4) Neutrophils (%) (Auto) 72.4 % Lymphocytes (%) (Auto) 21.9 % Monocytes (%) (Auto) 4.4 % Eosinophils (%) (Auto) 0.8 % Basophils (%) (Auto) 0.3 % Neutrophils # (Auto) 9.11 K/uL (1.4-6.5) Lymphocytes # (Auto) 2.76 K/uL (1.2-3.4) Monocytes # (Auto) 0.56 K/uL (0.11-0.59) Eosinophils # (Auto) 0.10 K/uL (0-0.5) Basophils # (Auto) 0.04 K/uL (0-0.2) RDW Standard Deviation 45.6 fL (36.4-46.3) RDW Coefficient of Variation 13.9 % (11.5-14.5) Immature Granulocyte % (Auto) 0.2 % Immature Granulocyte # (Auto) 0.02 K/uL (0.00-0.02) Prothrombin Time 9.9 SECONDS (9.0-12.0) Prothromb Time International Ratio 0.9 (0.9-1.1) Activated Partial Thromboplast Time 29.2 SECONDS (21.0-31.0) Partial Thromboplastin Ratio 1.1 Urine Color YELLOW Urine Appearance SL CLOUDY (CLEAR) Urine pH 6.5 (4.5-7.5) Urine Specific [place] 1.020 (1.000-1.030) Urine Protein NEG (NEG) Urine Glucose (UA) NEG (NEG) Urine Ketones TRACE (NEG) Urine Occult Blood NEG (NEG) Urine Nitrite NEG (NEG) Urine Bilirubin NEG (NEG) Urine Urobilinogen NEG (NEG) Urine Leukocyte Esterase NEG (NEG) Urine Test NEG (NEG) Anion Gap 7.0 mmol/L (3-11) Est Creatinine Clear Calc Drug Dose 124.8 ml/min Estimated GFR () 125.3 Estimated GFR (Non- 108.1 BUN/Creatinine Ratio 20.0 (10-20) Calcium Level 8.8 mg/dl (8.5-10.1) Magnesium Level 2.3 mg/dl (1.8-2.4) Total Bilirubin 0.2 mg/dl (0.2-1) Aspartate Amino Transf (AST/SGOT) 16 U/L (15-37) Alanine Aminotransferase (ALT/SGPT) 29 U/L (12-78) Alkaline Phosphatase 93 U/L (45-117) Total Creatine Kinase 112 U/L (26-192) Creatine Kinase MB < 0.5 ng/ml (0.5-3.6) Creatine Kinase MB Ratio (0-3.0) Troponin I < 0.015 ng/ml (0-0.045) Total Protein 7.6 gm/dl (6.4-8.2) Albumin 3.5 gm/dl (3.4-5.0) Globulin 4.1 gm/dl (2.5-4.0) Albumin/Globulin Ratio 0.9 (0.9-2) Medical Decision Patient was seen and evaluated as above. She presents to us today with diffuse body aches, and a palpable lump in the left upper quadrant which she felt beginning this morning. Review was performed of nursing notes and vital signs. After obtaining a thorough history and physical examination the above work up was performed. She is nontoxic on exam. She is afebrile. I favor this to be likely viral in etiology. Ultrasound was obtained the soft tissue and found to be negative. It is important to note that the small bump is likely in the soft tissues and is not deep. Her abdominal exam is benign. Although there is leukocytosis, review of her previous visits indicate that this is not unusual for her. No significant anemia. Coags normal. Metabolic panel reveals no concerning kidney or liver failure. No evidence of rhabdomyolysis. No evidence of rhabdomyolysis. Urine negative. UPT negative. She is hemodynamically stable. She is to follow closely with the family doctor. The patient was educated upon management, had questions answered prior to discharge , and was discharged home in good condition. Of additional note, I was able to obtain the ultrasound result that was just performed of her throat/neck region at [facility] as ordered by PCP. There are morphologically abnormal lymph nodes. She is to follow with her family doctor. She is already aware that she will likely need biopsy of this region. I informed her though she is to return if she worsens or if the need arises. Case was discussed with the attending physician. I attest that I have personally reviewed the patient medication list. I attest that I have reviewed the patient's blood pressure and it was found to be Elevated, she is to follow up with family doctor. In the evaluation and treatment of this patient the following differential diagnoses were entertained: LA, PE, peritonitis, costochondritis, splenomegaly, mononucleosis, viral etiology, among others. Impression Primary Impression: abdominal soft tissue lump Departure Information Dispostion Home / Self-Care Condition GOOD Prescriptions No Active Prescriptions or Reported Meds Referrals Ruth Rossi D.O. (PCP) Patient Instructions My [facility] Additional Instructions You have been treated in the Emergency Department your Abdominal tissue lump. Laboratory results and imaging studies have ruled out any emergent causes for your abdominal pain which would warrant admission or surgery. For pain control, you can use the following [id number] medicines: - Regular strength (325mg/tab) Tylenol (acetaminophen) 2 tabs every 4-6 hours as needed. Do not exceed 12 tablets in a 24 hour period. Avoid taking more than 3 grams (3000 mg) of Tylenol per day. This includes any other sources of acetaminophen you may take on a regular basis. - Regular strength (200 mg/tab) Advil (ibuprofen) 1-2 tabs every 4-6 hours as needed. Do not exceed a dose of 3200 mg per day. Drink plenty of water and stay well hydrated. As with any trip to the Emergency Department, you should follow-up with your Primary Care Provider from today's visit. Return to the emergency department if your symptoms persist despite treatment plan outlined above or if the following symptoms occur: increased fevers, chills , worsening nausea/vomiting, blood in your stool or urine.
[2017-12-31 11:57] LABS: ALBUMIN 3.5 gm/dl (3.4-5.0); ALT/SGPT 29 U/L (12-78); AST/SGOT 16 U/L (15-37); BLOOD UREA NITROGEN 15 mg/dl (7-18); CALCIUM 8.8 mg/dl (8.5-10.1); CARBON DIOXIDE 24 mmol/L (21-32); CREATININE 0.77 mg/dl (0.60-1.20); GLUCOSE 90 mg/dl (70-99); POTASSIUM 4.2 mmol/L (3.5-5.1); SODIUM 137 mmol/L (136-145)
[2017-12-31 12:02] LABS: ALKALINE PHOSPHATASE 93 U/L (45-117); CKMB < 0.5 ng/ml (0.5-3.6); TOTAL PROTEIN 7.6 gm/dl (6.4-8.2)
--- NOTE | 2017-12-31 12:16 | DIAGNOSTIC IMAGING REPORT ---
L EXTREMITY NONVASCULAR LIMITED CLINICAL HISTORY: LUQ soft tissue lump. Mass TECHNIQUE: Survey ultrasound left abdomen COMPARISON STUDY: None FINDINGS: Normal ultrasound of the anterior abdominal wall. No evidence for mass or collection by ultrasound criteria IMPRESSION: Normal study. The above report was generated using voice recognition software. It may contain grammatical, syntax or spelling errors. Electronically signed by: Artem Jaime M.D. 12/31/2017 12:15 PM Dictated Date/Time: 12/31/2017 12:14 PM
[2017-12-31 13:28] VITALS: BP 109/77; PULSE 59; O2SAT 97
== END 2017-12-31 13:26 | disposition home or self-care (01) ==
LOC: C.EDB 11:02 → C.EDC 13:26
DX: R22.2 Localized swelling, mass and lump, trunk (principal); F17.200 Nicotine dependence, unspecified, uncomplicated; F12.10 Cannabis abuse, uncomplicated; Z82.49 Family history of ischemic heart disease and other diseases of the circulatory system; Z83.3 Family history of diabetes mellitus

== ENCOUNTER → 2018-01-09 | Outpatient (CLI) | payer OTHER ==
--- NOTE | 2018-01-09 14:05 | DIAGNOSTIC IMAGING REPORT ---
GUIDANCE NEEDLE PLACEMENT CLINICAL HISTORY: Mildly prominent submental lymph nodes, palpable for several months. COMPARISON STUDY: Ultrasound of the neck 12/26/2017. PROCEDURE: The risks, benefits, and alternatives to the procedure were discussed with the patient. Written informed consent was obtained. The patient was placed supine in ultrasound, and the 1.0 cm lymph node in the submental region was localized by ultrasound and selected for fine needle aspiration. The submental neck was prepped and draped in the usual sterile fashion. The nodule was aspirated under ultrasound guidance with 3 passes utilizing 25-gauge needles. Specimens were reviewed by the pathologist in real-time and deemed adequate for diagnosis. The patient tolerated the procedure well and left the department in satisfactory condition. IMPRESSION: Completed fine-needle aspiration of a submental lymph node as above. The above report was generated using voice recognition software. It may contain grammatical, syntax or spelling errors. Electronically signed by: Olman Hunt M.D. 01/09/2018 2:04 PM Dictated Date/Time: 01/09/2018 2:01 PM
== END | disposition home or self-care (01) ==
LOC: C.ULTR 12:51
PROVIDERS: ATTEND Family Medicine
DX: R59.1 Generalized enlarged lymph nodes (principal)

== ENCOUNTER 2019-10-23 12:30 | Inpatient (IN) ==
[2019-10-23] MEDS ORDERED: ONDANSETRON INJ 2 MG/ML 2 ML VIAL IV STA (13:09)
[2019-10-23] MEDS ORDERED: SODIUM CHLORIDE 0.9% 1000ML 1,000 ML IV ONE (13:09)
[2019-10-23] MEDS ORDERED: MoRPHine SULFATE 4 MG/ML 1 ML CARP\\VIAL IV STA (13:09)
[2019-10-23 13:25] LABS: POC Urine Bilirubin Negative (Negative); POC Urine Blood Trace (Negative); POC Urine Glucose Normal (Normal); POC Urine Ketones Negative (Negative); POC Urine Leukocytes 1+ (Negative); POC Urine Nitrite Positive (Negative); POC Urine Protein Trace (Negative); POC Urine pH 5 (4.5-7.5)
[2019-10-23 13:52] LABS: Appearance Urine Turbid (Clear); Bacteria Urine Automated 4+ (Negative); Bilirubin Urine Negative (Negative); Blood Urine 1+ (Negative); Color Urine Dark Yellow; Epithelial Cell Urine Auto >30 /lpf (0-5); Glucose Urine UA Negative (Negative); Ketones Urine Trace (Negative); Leukocyte Esterase Urine 3+ (Negative); Nitrite Urine Positive (Negative); Protein Urine 1+ (Negative); Urobilinogen Urine Negative (Negative); WBC Urine Automated >30 /hpf (0-5); pH Urine 5.5 (4.5-7.5)
[2019-10-23 14:00] LABS: Basophils # (auto) 0.03 K/uL (0-0.2); Basophils % (auto) 0.2 %; Eosinophils # (auto) 0.06 K/uL (0-0.5); Eosinophils % (auto) 0.4 %; Hemoglobin 13.4 g/dL (12.0-16.0); Immature Granulocytes # (auto) 0.03 K/uL (0.00-0.02); Immature Granulocytes % (auto) 0.2 %; Lymphocytes # (auto) 1.79 K/uL (1.2-3.4); Lymphocytes % (auto) 13.1 %; Mean Corpuscular Hemoglobin 30.7 pg (25-34); Mean Corpuscular Hgb Conc 33.5 g/dL (32-36); Mean Corpuscular Volume 91.7 fL (80-100); Mean Platelet Volume 10.1 fL (7.4-10.4); Monocytes # (auto) 1.05 K/uL (0.11-0.59); Monocytes % (auto) 7.7 %; Neutrophils # (auto) 10.68 K/uL (1.4-6.5); Neutrophils % (auto) 78.4 %; Platelet Count 265 K/uL (130-400); RDW Coefficient of Variation 14.4 % (11.5-14.5); RDW Standard Deviation 48.8 fL (36.4-46.3); Red Blood Count 4.36 M/uL (4.2-5.4); White Blood Count 13.64 K/uL (4.8-10.8)
[2019-10-23 14:12] LABS: Pregnancy Test, Serum Negative (Negative)
[2019-10-23 14:18] LABS: Albumin Level 3.3 gm/dl (3.4-5.0); BUN Creatinine Ratio 11.6 (10-20); Est GFR (African American) 98.3; Est GFR (Non-African American) 84.8; Potassium 3.8 mmol/L (3.5-5.1)
[2019-10-23 14:21] LABS: Albumin Globulin Ratio 0.7 (0.9-2); Bilirubin,Total 0.3 mg/dl (0.2-1); Globulin 4.5 gm/dl (2.5-4.0); Total Protein 7.8 gm/dl (6.4-8.2)
[2019-10-23 14:23] LABS: RBC Urine Automated 0-4 /hpf (0-4)
[2019-10-23 14:24] LABS: Calcium Oxalate Crystals Urine Present (None Prsent); Mucus Urine Present (None Prsent)
[2019-10-23] MEDS ORDERED: cefTRIAXone SODIUM 2,000 MG/70 ML BAG IV STA (14:30)
--- NOTE | 2019-10-23 14:45 | Ultrasound Report ---
US renal/blad retro comp HISTORY: 24 years-old Female right flnak pain eval for hydro acute right-sided flank pain COMPARISON: CT abdomen pelvis 05/05/2019 TECHNIQUE: Multiple real-time sonographic images of the kidneys and urinary bladder were obtained ass essing grayscale appearance and color flow FINDINGS: The right kidney measures 12.8 cm in length and demonstrates no renal calculi, hydronephrosis or susp icious mass lesion. Left kidney measures 11.8 cm in length and demonstrates no renal calculi, hydronephrosis or suspiciou s mass lesion. Partial distention of the urinary bladder. Ureteral jets not identified. IMPRESSION: 1. Unremarkable sonographic appearance of the kidneys without renal calculi or hydronephrosis. 2. Partial distention of the urinary bladder. ACT 112: Negative or not required by law. The above report was generated using voice recognition software. It may contain grammatical, syntax o r spelling errors. Electronically signed by: Olman Hunt M.D. 10/23/2019 2:44 PM
[2019-10-23] MEDS ORDERED: MoRPHine SULFATE 2 MG/ML CARP IV STA (15:20)
--- NOTE | 2019-10-23 15:53 | XRay Report ---
XR KUB/Abdomen 1 view CLINICAL HISTORY: right flnak eval for stone COMPARISON STUDY: 09/24/2017 FINDINGS: Possible 2 mm calculus distal right ureter. Renal and psoas shadows are otherwise unremarkable. Bowel pattern is nonobstructive. No secondary sig ns of free air. IMPRESSION: Potential interval development of a 2 mm calcification distal right ureteral level ACT 112: Negative or not required by law. The above report was generated using voice recognition software. It may contain grammatical, syntax or spelling errors. Electronically signed by: Artem Jaime M.D. 10/23/2019 3:51 PM
--- NOTE | 2019-10-23 15:56 | XRay Report ---
XR lumbar spine 2-3V CLINICAL HISTORY: pain eval for fx trauma. Pain. COMPARISON STUDY: No previous studies for comparison. FINDINGS: Normal study. No evidence for compression deformity or subluxation. IMPRESSION: Normal study ACT 112: Negative or not required by law. The above report was generated using voice recognition software. It may contain grammatical, syntax or spelling errors. Electronically signed by: Artem Jaime M.D. 10/23/2019 3:54 PM
--- NOTE | 2019-10-23 17:11 | CT Scan Report ---
CT abd pelvis wo con CT DOSE: 579.05 mGy.cm HISTORY: Flank pain right flank pain eval for stone TECHNIQUE: Multiaxial CT images of the abdomen and pelvis were performed without contrast. A dose lo wering technique was utilized adhering to the principles of ALARA. COMPARISON STUDY: 05/05/2019 FINDINGS: Lung bases are clear. The liver spleen and pancreas are unremarkable. Normal adrenal glands . Left kidney is negative for calcification or hydronephrosis. Mild fullness right renal collecting system and proximal right ureter. Mild right renal perinephric i nfiltrative change primarily at the mid and lower pole region of the perirenal fat. Vascular calcific ation posterior to the right margin of the bladder. A well-defined obstructing calculus is not apprec iated. Diagnostic considerations include a right upper urinary tract infection versus recently passed calcul us. Possible faint 4 mm calcification right ureteral pelvic junction Nonobstructive bowel pattern. Normal appendix. Reconstructed images suggest the possibility of a 4 mm calcification right ureteral pelvic junction. This is best seen transaxial image 176 IMPRESSION: 1. Mild right renal hydroureteronephrosis. 2. Possible 4 mm calcification right ureteral pelvic junction versus artifact. 3. Diagnostic considerations include a poorly defined obstructing calculus versus an upper right urin gabby tract infection. 4. Study is otherwise unremarkable. 5. Normal appendix. ACT 112: Negative or not required by law. The above report was generated using voice recognition software. It may contain grammatical, syntax or spelling errors. Electronically signed by: Artem Jaime M.D. 10/23/2019 5:09 PM
[2019-10-23] MEDS ORDERED: KETOROLAC 30 MG/ML VIAL IV STA (17:54)
--- NOTE | 2019-10-23 18:35 | Emergency Department Note ---
Entered by Adriana Yin acting as a scribe for Abdiaziz Henley MD History of Present Illness General Chief complaint: Back Injury/Pain Stated complaint: MAJOR PAIN ON RIGHT SIDE OF BACK AND ABDOMEN Time Seen by Provider: 10/23/19 12:59 Source: patient History of Present Illness Onset (ago): day(s) 4 Location: back (right lower) Radiation: extremity (right lower), abdomen (right lower) and other (right buttocks) Pain Consistency: + other (waxing and waning ) Maximum Pain Intensity: 8 Quality: + stabbing and + other (cramping) Exacerbated By: + movement and + other (pressure on right leg) Associated symptoms: + other (positive intermittent right leg numbness when laying flat; negative incontinence; negative problems with urination) The patient is a 24 year old female who presents to the Emergency Room with complaints of waxing and waning right lower back pain that began 4 days prior to arrival. The patient states that this pain radiates into her right side and right lower abdomen. The patient states that her pain is exacerbated with movement and radiates down into her right buttocks and all the way down her right leg with movement. The patient describes her pain as stabbing and cramping. She states that her symptoms are also exacerbated with pressure on her right leg. The patient states that she has intermittent right leg numbness when laying flat on her back. She feels better when she is lying on her stomach on her left side. The patient denies incontinence and problems with urination. She denies any recent heavy lifting or falls. The patient states that she previously had vaginal bleeding on 10/11 stating that she had tissue in the toilet at this time. The patient states that she thought she was having a miscarriage, but states that she never had a test to confirm . The patient states that she left AMA prior to finding out if she had a miscarriage. She states that she got her normal menstrual period today. Home Medications Home Medications Medication Instructions Recorded Confirmed Type bupropion HCl 150 mg PO QAM 05/05/19 10/23/19 History aripiprazole [Abilify Maintena] 200 mg IM UD 10/11/19 10/23/19 History bupropion HCl 75 mg PO QPM 10/11/19 10/23/19 History Allergies Allergy/AdvReac Type Severity Reaction Status Date / Time No Known Allergies Allergy Verified 10/23/19 13:18 Past Med/Surg History Medical History C. difficile diarrhea (Acute) Depression (Chronic) Fainting spell (Acute) IBS (irritable bowel syndrome) Marijuana abuse (Acute) Mood disorder (Chronic) Mood disorder (Acute) Non-cardiac chest pain (Acute) Precordial chest pain (Acute) Syncope (Acute) Family History Other Diabetes Hypertension Social History Preferred Language: [place] marital status: divorce Feels Safe at Home: Yes Smoking Status: Current every day smoker Tobacco Type: cigarettes ; Review of Systems See HPI for pertinent positives & negatives. and A total of 10 systems reviewed and were otherwise negative Physical Exam Vital Signs Vital Signs - 24 hr 10/23/19 12:36 10/23/19 13:42 10/23/19 13:48 Temperature 37 C Temperature Source Oral Pulse Rate 102 H Pulse Rate [Finger] 74 Pulse Rhythm [Finger] Pulse Strength [Finger] Respiratory Rate 18 16 Respiratory Effort / Characteristics Non-Labored Non-Labored Respiratory Depth Normal Normal Respiratory Pattern Regular Blood Pressure 127/81 Blood Pressure [Right Arm] 101/60 Blood Pressure Mean 96 Blood Pressure Mean [Right Arm] 73 Pulse Oximetry 97 96 97 Oxygen Delivery Method Room Air Room Air Room Air Sepsis Recent Fever Within 48 Hours No Sepsis Action Taken by Nursing No Action Required 10/23/19 16:00 10/23/19 18:00 Temperature Temperature Source Oral Pulse Rate Pulse Rate [Finger] 75 74 Pulse Rhythm [Finger] Regular Regular Pulse Strength [Finger] Normal Respiratory Rate 16 18 Respiratory Effort / Characteristics Non-Labored Non-Labored Respiratory Depth Normal Normal Respiratory Pattern Regular Regular Blood Pressure Blood Pressure [Right Arm] 114/69 103/68 Blood Pressure Mean Blood Pressure Mean [Right Arm] 84 79 Pulse Oximetry 97 99 Oxygen Delivery Method Room Air Room Air Sepsis Recent Fever Within 48 Hours Sepsis Action Taken by Nursing Constitutional: Vital signs reviewed. Eyes: Pupils are equal round reactive to light. Conjunctiva are noninjected. ENT: Pharynx is clear without erythema or exudate. Mucous membranes are moist. Neck supple without meningeal signs. Respiratory: Clear to auscultation bilaterally. Breath sounds are equal bilaterally. Cardiovascular: Regular rate and rhythm. No rubs or gallops. GI: Soft, nondistended and nontender. Bowel sounds are present. Musculoskeletal: No midline tenderness to the thoracic or lumbar spine. No paravertebral muscular tenderness. Significant pain trying to turn onto back on the bed. No peripheral edema. No lower extremity tenderness. Integumentary: No cyanosis. Neurological: Motor and sensation intact in the lower extremities. Negative straight leg raise bilaterally. The patient is awake and alert. No focal deficits. Psychiatric: Normal affect. Course Course 1302: Past medical records reviewed. The patient was evaluated in room A12A. A complete history and physical exam was performed. 1519: I discussed the patient's test results with her. She states that her white count is typically elevated. I recommended follow up with her doctor for this. The patient is waiting for an x-ray. She is requesting more pain medication. 1602: The patient is agreeable to a CT scan due to findings of a stone and UTI. 1746: Upon reevaluation, the patient is still having pain. I recommended hospitalization. 1747: I am paging Dr. DongUrologgirma. 1749: I discussed the case with Dr. Head in detail and he agrees with further evaluation by the hospitalist service. He states that the patient does not need a stent. 1753: I discussed the case with Veronique RICHTER who accepts the patient for further evaluation under Dr. Vides Hospitalist service. Administered Medications Discontinued Medications Sodium Chloride (Nss 1000ml) 1,000 mls @ 999 mls/hr IV .Q1H1M ONE Stop: 10/23/19 14:09 Last Infusion: 10/23/19 15:12 Dose: 0 mls/hr Documented by: [id number] Admin: 10/23/19 13:41 Dose: 999 mls/hr Documented by: [id number] Ceftriaxone Sodium (Rocephin) 2,000 mg in 70 mls @ 140 mls/hr IV NOW STA Stop: 10/23/19 14:59 Last Infusion: 10/23/19 16:15 Dose: 0 mls/hr Documented by: [id number] Admin: 10/23/19 15:22 Dose: 140 mls/hr Documented by: [id number] Ketorolac Tromethamine (Toradol) 10 mg IV NOW STA Stop: 10/23/19 17:55 Last Admin: 10/23/19 18:05 Dose: 10 mg Documented by: [id number] Morphine Sulfate (Morphine Sulfate) 4 mg IV NOW STA Stop: 10/23/19 13:10 Last Admin: 10/23/19 13:42 Dose: 4 mg Documented by: [id number] Morphine Sulfate (Morphine Sulfate) 2 mg IV NOW STA Stop: 10/23/19 15:21 Last Admin: 10/23/19 15:40 Dose: 2 mg Documented by: [id number] Ondansetron HCl (Zofran) 4 mg IV NOW STA Stop: 10/23/19 13:10 Last Admin: 10/23/19 13:42 Dose: 4 mg Documented by: [id number] Medical Decision Making Differential Diagnosis Differential diagnoses include lumbar disc disease, radiculopathy, kidney stone, , UTI, strain, and others were considered. Medical Records Attestation: I reviewed the patient's medical records. The patient was here for vaginal bleeding on 10/11/19 and left AMA. Home Medications Current Medication List: was personally reviewed by me Laboratory Data Attestation: I reviewed the patient's lab results. Result diagrams: 10/23/19 13:39 10/23/19 13:39 Lab Results 10/23/19 10/23/19 10/23/19 Range/Units 13:19 13:22 13:23 WBC (4.8-10.8) K/uL RBC (4.2-5.4) M/uL Hgb (12.0-16.0) g/dL Hct (37-47) % MCV (80-100) fL MCH (25-34) pg MCHC (32-36) g/dL RDW Std Deviation (36.4-46.3) fL RDW Coeff of Sunshine (11.5-14.5) % Plt Count (130-400) K/uL MPV (7.4-10.4) fL Immature Gran % (Auto) % Neut % (Auto) % Lymph % (Auto) % [place] % (Auto) % Eos % (Auto) % Baso % (Auto) % Immature Gran # (Auto) (0.00-0.02) K/uL Neut # (Auto) (1.4-6.5) K/uL Lymph # (Auto) (1.2-3.4) K/uL [place] # (Auto) (0.11-0.59) K/uL Eos # (Auto) (0-0.5) K/uL Baso # (Auto) (0-0.2) K/uL Sodium (136-145) mmol/L Potassium (3.5-5.1) mmol/L Chloride (98-107) mmol/L Carbon Dioxide (21-32) mmol/L Anion Gap (3-11) BUN (7-18) mg/dl Creatinine (0.6-1.2) mg/dl Est Cr Clr Drug Dosing ml/min Est GFR ( Amer) Est GFR (Non-Af Amer) BUN/Creatinine Ratio (10-20) Glucose (70-99) mg/dl Calcium (8.5-10.1) mg/dl Total Bilirubin (0.2-1) mg/dl AST (15-37) U/L ALT (12-78) U/L Alkaline Phosphatase (45-117) U/L Total Protein (6.4-8.2) gm/dl Albumin (3.4-5.0) gm/dl Globulin (2.5-4.0) gm/dl Albumin/Globulin Ratio (0.9-2) Lipase (73-393) U/L HCG, Qual (Negative) Urine Color Dark Yellow Urine Appearance Turbid A (Clear) Urine pH 5.5 (4.5-7.5) POC Urine pH 5 (4.5-7.5) Ur Specific [place] 1.020 (1.000-1.030) Urine Protein 1+ H (Negative) POC Urine Protein Trace H (Negative) Urine Glucose (UA) Negative (Negative) POC Ur Glucose (UA) Normal (Normal) Urine Ketones Trace H (Negative) POC Urine Ketones Negative (Negative) Urine Blood 1+ H (Negative) POC Urine Blood Trace H (Negative) Urine Nitrite Positive A (Negative) POC Urine Nitrite Positive A (Negative) Urine Bilirubin Negative (Negative) POC Urine Bilirubin Negative (Negative) Urine Urobilinogen Negative (Negative) Ur Leukocyte Esterase 3+ H (Negative) POC U Leukocyte Esteras 1+ H (Negative) Urine WBC (Auto) >30 H (0-5) /hpf Urine RBC (Auto) 0-4 (0-4) /hpf U Hyaline Cast (Auto) 10-30 H (0-5) /lpf U Epithel Cells (Auto) >30 H (0-5) /lpf Urine Bacteria (Auto) 4+ H (Negative) Urine Crystals Not Reportable Calcium Oxalate Crystal Present A (None Prsent) Granular Casts 1-5 H (0) /lpf Urine Mucus Present A (None Prsent) POC Ur Test NEG (NEG) 10/23/19 10/23/19 10/23/19 Range/Units 13:39 13:39 13:39 WBC 13.64 H (4.8-10.8) K/uL RBC 4.36 (4.2-5.4) M/uL Hgb 13.4 (12.0-16.0) g/dL Hct 40.0 (37-47) % MCV 91.7 (80-100) fL MCH 30.7 (25-34) pg MCHC 33.5 (32-36) g/dL RDW Std Deviation 48.8 H (36.4-46.3) fL RDW Coeff of [place]shine 14.4 (11.5-14.5) % Plt Count 265 (130-400) K/uL MPV 10.1 (7.4-10.4) fL Immature Gran % (Auto) 0.2 % Neut % (Auto) 78.4 % Lymph % (Auto) 13.1 % [place] % (Auto) 7.7 % Eos % (Auto) 0.4 % Baso % (Auto) 0.2 % Immature Gran # (Auto) 0.03 H (0.00-0.02) K/uL Neut # (Auto) 10.68 H (1.4-6.5) K/uL Lymph # (Auto) 1.79 (1.2-3.4) K/uL [place] # (Auto) 1.05 H (0.11-0.59) K/uL Eos # (Auto) 0.06 (0-0.5) K/uL Baso # (Auto) 0.03 (0-0.2) K/uL Sodium 139 (136-145) mmol/L Potassium 3.8 (3.5-5.1) mmol/L Chloride 107 (98-107) mmol/L Carbon Dioxide 28 (21-32) mmol/L Anion Gap 4.0 (3-11) BUN 11 (7-18) mg/dl Creatinine 0.93 (0.6-1.2) mg/dl Est Cr Clr Drug Dosing 101.0 ml/min Est GFR ( Amer) 98.3 Est GFR (Non-Af Amer) 84.8 BUN/Creatinine Ratio 11.6 (10-20) Glucose 73 (70-99) mg/dl Calcium 9.0 (8.5-10.1) mg/dl Total Bilirubin 0.3 (0.2-1) mg/dl AST 19 (15-37) U/L ALT 45 (12-78) U/L Alkaline Phosphatase 104 (45-117) U/L Total Protein 7.8 (6.4-8.2) gm/dl Albumin 3.3 L (3.4-5.0) gm/dl Globulin 4.5 H (2.5-4.0) gm/dl Albumin/Globulin Ratio 0.7 L (0.9-2) Lipase 139 (73-393) U/L HCG, Qual Negative (Negative) Urine Color Urine Appearance (Clear) Urine pH (4.5-7.5) POC Urine pH (4.5-7.5) Ur Specific [place] (1.000-1.030) Urine Protein (Negative) POC Urine Protein (Negative) Urine Glucose (UA) (Negative) POC Ur Glucose (UA) (Normal) Urine Ketones (Negative) POC Urine Ketones (Negative) Urine Blood (Negative) POC Urine Blood (Negative) Urine Nitrite (Negative) POC Urine Nitrite (Negative) Urine Bilirubin (Negative) POC Urine Bilirubin (Negative) Urine Urobilinogen (Negative) Ur Leukocyte Esterase (Negative) POC U Leukocyte Esteras (Negative) Urine WBC (Auto) (0-5) /hpf Urine RBC (Auto) (0-4) /hpf U Hyaline Cast (Auto) (0-5) /lpf U Epithel Cells (Auto) (0-5) /lpf Urine Bacteria (Auto) (Negative) Urine Crystals Calcium Oxalate Crystal (None Prsent) Granular Casts (0) /lpf Urine Mucus (None Prsent) POC Ur Test (NEG) Imaging Data Radiologist's Impression: Radiology results as stated below per my review and the radiologist's interpretation: US renal/blad retro comp HISTORY: 24 years-old Female right flnak pain eval for hydro acute right-sided flank pain COMPARISON: CT abdomen pelvis 05/05/2019 TECHNIQUE: Multiple real-time sonographic images of the kidneys and urinary bladder were obtained assessing grayscale appearance and color flow FINDINGS: The right kidney measures 12.8 cm in length and demonstrates no renal calculi, hydronephrosis or suspicious mass lesion. Left kidney measures 11.8 cm in length and demonstrates no renal calculi, hydronephrosis or suspicious mass lesion. Partial distention of the urinary bladder. Ureteral jets not identified. IMPRESSION: 1. Unremarkable sonographic appearance of the kidneys without renal calculi or hydronephrosis. 2. Partial distention of the urinary bladder. ACT 112: Negative or not required by law. The above report was generated using voice recognition software. It may contain grammatical, syntax or spelling errors. Electronically signed by: Olman Hunt M.D. 10/23/2019 2:44 PM XR KUB/Abdomen 1 view CLINICAL HISTORY: right flnak eval for stone COMPARISON STUDY: 09/24/2017 FINDINGS: Possible 2 mm calculus distal right ureter. Renal and psoas shadows are otherwise unremarkable. Bowel pattern is nonobstructive. No secondary signs of free air. IMPRESSION: Potential interval development of a 2 mm calcification distal right ureteral level ACT 112: Negative or not required by law. The above report was generated using voice recognition software. It may contain grammatical, syntax or spelling errors. Electronically signed by: Artem Jaime M.D. 10/23/2019 3:51 PM XR lumbar spine 2-3V CLINICAL HISTORY: pain eval for fx trauma. Pain. COMPARISON STUDY: No previous studies for comparison. FINDINGS: Normal study. No evidence for compression deformity or subluxation. IMPRESSION: Normal study ACT 112: Negative or not required by law. The above report was generated using voice recognition software. It may contain grammatical, syntax or spelling errors. Electronically signed by: Artem Jaime M.D. 10/23/2019 3:[address] abd pelvis wo con CT DOSE: 579.05 mGy.cm HISTORY: Flank pain right flank pain eval for stone TECHNIQUE: Multiaxial CT images of the abdomen and pelvis were performed without contrast. A dose lowering technique was utilized adhering to the principles of ALARA. COMPARISON STUDY: 05/05/2019 FINDINGS: Lung bases are clear. The liver spleen and pancreas are unremarkable. Normal adrenal glands. Left kidney is negative for calcification or hydronephrosis. Mild fullness right renal collecting system and proximal right ureter. Mild right renal perinephric infiltrative change primarily at the mid and lower pole region of the perirenal fat. Vascular calcification posterior to the right margin of the bladder. A well-defined obstructing calculus is not appreciated. Diagnostic considerations include a right upper urinary tract infection versus recently passed calculus. Possible faint 4 mm calcification right ureteral pelvic junction Nonobstructive bowel pattern. Normal appendix. Reconstructed images suggest the possibility of a 4 mm calcification right ureteral pelvic junction. This is best seen transaxial image 176 IMPRESSION: 1. Mild right renal hydroureteronephrosis. 2. Possible 4 mm calcification right ureteral pelvic junction versus artifact. 3. Diagnostic considerations include a poorly defined obstructing calculus versus an upper right urinary tract infection. 4. Study is otherwise unremarkable. 5. Normal appendix. ACT 112: Negative or not required by law. The above report was generated using voice recognition software. It may contain grammatical, syntax or spelling errors. Electronically signed by: Artem Jaime M.D. 10/23/2019 5:09 PM Blood Pressure Blood Pressure Findings: Elevated blood pressure Blood Pressure Disposition: Referred to patients primary care provider MDM Narrative I did evaluate the patient as noted above. The patient is presenting with severe right flank pain. The pain is worse with positioning and seems to be worse when laying on her right side. Also intermittently radiates down her right leg. She is neurologically intact without a straight leg sign. She denies any history of kidney stones. IV access was established. The patient was placed on a continuous gambling monitor. I did treat the patient with morphine and Zofran IV. She was also given normal saline IV. She had continued pain and was given additional morphine IV. I did order an ultrasound of the kidneys to evaluate for hydronephrosis. The ultrasound was unremarkable without signs of hydronephrosis or kidney stone. I did order and personally reviewed the images of the patient's lumbar spine and KUB x-ray as described above. The LS-spine was unremarkable but the KUB demonstrated possible 2 mm right distal ureteral stone. I did reassess the patient. She is continuing to have symptoms. I did order a urine analysis. She has significant infection. I did treat her with ceftriaxone 2 g IV. Urine test was negative. I did order and review the patient's blood work as noted in the electronic medical record. Her white blood cell count is elevated. She is not anemic. Electrolytes and renal function are unremarkable. After discussion with the patient, I did order a CT of the abdomen and pelvis. I did review the images myself as well as the radiology report as described above. He appears to have right hydroureteronephrosis with a possible 4 mm UPJ stone. She also has perinephric infiltrative changes. Given the patient has hydronephrosis and a pyelonephritis I did discuss the case with urology. Dr. Quinonez stated he would see the patient when she was hospitalized. He did not feel she needed an emergent stent. She is afebrile here but complains of continued pain. I did treat the patient with Toradol 10 mg IV. I did discuss the test results with her. I did discuss the case with the hospitalist and family caseworker. Impression & Plan Obstructive uropathy, Pyelonephritis, Intractable pain Discharge Plan Visit Data Chief Complaint: Back Injury/Pain Stated Complaint: MAJOR PAIN ON RIGHT SIDE OF BACK AND ABDOMEN ED Provider: Abdiaziz Henley Discharge Problem: Obstructive uropathy, Pyelonephritis, Intractable pain Patient Disposition: Being Evaluated by Hospitalist Forms Stand Alone Forms: My [facility] Prescriptions Prescriptions: No Action bupropion HCl 150 mg tablet sustained-release 12 hr 150 mg PO QAM RF: 0 bupropion HCl 75 mg Tablet 75 mg PO QPM RF: 0 Abilify Maintena 300 mg Suspension,Extended Rel Recon 200 mg IM UD RF: 0 Referrals Referrals: Ruth Rossi DO [Primary Care Provider] - The scribe's documentation has been prepared under my direction and personally reviewed by me in its entirety. I confirm that the note above accurately reflects all work, treatment, procedures, and medical decision making performed by me.
--- NOTE | 2019-10-23 18:48 | History & Physical Report ---
Date of Service October 23, 2019 Assessment & Plan (1) Right flank pain: (2) Right ureteral stone: Mild right renal hydroureteronephrosis. Present on admission with right sided flank pain for about [address] abd/pelvis showed mild right renal hydroureteronephrosis. Possible 4 mm calcification right ureteral pelvic junction versus artifact. Continue pain control Continue IV fluid Urology consult Will make n.p.o. after midnight if plan for any procedure UTI Urine positive for leukocyte, nitrite and bacteria Received Rocephin 2 g IV in the ER Urine culture pending We will continue IV Rocephin Depression Continue Bupropion DVT px Pt ambulates/SCDs CODE STATUS FULL CODE History of Present Illness Chief Complaint: Right Flank pain Primary Care Provider: Ruth Rossi DO 24 years old female with past medical history of tobacco abuse, depression, came to the ER for right sided flank pain. Patient said pain started 4 days ago in the right flank area then radiated to the right groin area. She said the pain is worsening with movement. she described the pain as sharp and comes and goes. She said she tried OTC pain med with no relief. She said today the pain is worsening, grade 9 out of 10. She denies any fever but mentioned that she has some chills. she denies any dysuria or urinary frequency. She has her menstruation currently. Denies any chest pain, palpitation, dizziness, shortness of breath. Allergies Allergy/AdvReac Type Severity Reaction Status Date / Time No Known Allergies Allergy Verified 10/23/19 13:18 Home Medications Home Medications Medication Instructions Recorded Confirmed Type bupropion HCl 150 mg PO QAM 05/05/19 10/23/19 History aripiprazole [Abilify Maintena] 200 mg IM UD 10/11/19 10/23/19 History bupropion HCl 75 mg PO QPM 10/11/19 10/23/19 History Past Med/Surg History Medical History C. difficile diarrhea (Acute) Depression (Chronic) Fainting spell (Acute) IBS (irritable bowel syndrome) Marijuana abuse (Acute) Mood disorder (Chronic) Mood disorder (Acute) Non-cardiac chest pain (Acute) Precordial chest pain (Acute) Syncope (Acute) Family History Other Diabetes Hypertension Social History Preferred Language: Croatian Communication Ability: Effective Relish Maker Required: No Beliefs That Will Affect Care: None marital status: divorce Current Living Situation: Alone Other Information That Helps Us Care for You: No Feels Safe at Home: Yes Safety Concerns: Feels Safe At This Time Smoking Status: Current every day smoker Tobacco Type: cigarettes ; Do You Dip or Chew Tobacco: No ; Second Hand Exposure: Yes ; Tobacco Cessation Education Requested by Patient: No Hx Alcohol Use: No Hx Substance Use: No Review of Systems Review of Systems: All systems reviewed & are unremarkable except as noted in HPI & below Physical Exam Physical Exam: General- No acute distress Head- atraumatic Eyes- PERRL, EOMI, ENT- oropharynx clear Neck- supple, no JVD Lungs- clear to auscultation Heart- regular rhythm; no murmur Abdomen- normal bowel sounds, soft, nontender Extremities- no calf tenderness Neuro- alert, oriented x 3; PERRL, EOMI; no facial palsy; no dysarthria Skin- warm & dry Results & Data Vital Signs (Past 12 Hours) Vital Signs Temp Pulse Pulse Resp BP BP Pulse Ox 10/23/19 18:00 74 18 103/68 99 10/23/19 16:00 75 16 114/69 97 10/23/19 13:48 97 10/23/19 13:42 74 16 101/60 96 10/23/19 12:36 37 C 102 H 18 127/81 97 Diagnostic Findings US renal/blad retro comp HISTORY: 24 years-old Female right flnak pain eval for hydro acute right-sided flank pain COMPARISON: CT abdomen pelvis 05/05/2019 TECHNIQUE: Multiple real-time sonographic images of the kidneys and urinary bladder were obtained assessing grayscale appearance and color flow FINDINGS: The right kidney measures 12.8 cm in length and demonstrates no renal calculi, hydronephrosis or suspicious mass lesion. Left kidney measures 11.8 cm in length and demonstrates no renal calculi, hydronephrosis or suspicious mass lesion. Partial distention of the urinary bladder. Ureteral jets not identified. IMPRESSION: 1. Unremarkable sonographic appearance of the kidneys without renal calculi or hydronephrosis. 2. Partial distention of the urinary bladder. ACT 112: Negative or not required by law. The above report was generated using voice recognition software. It may contain grammatical, syntax or spelling errors. Electronically signed by: Olman Hunt M.D. 10/23/2019 2:44 PM Dictated: 10/23/19 1443 Transcribed: 10/23/19 1443 XR lumbar spine 2-3V CLINICAL HISTORY: pain eval for fx trauma. Pain. COMPARISON STUDY: No previous studies for comparison. FINDINGS: Normal study. No evidence for compression deformity or subluxation. IMPRESSION: Normal study ACT 112: Negative or not required by law. The above report was generated using voice recognition software. It may contain grammatical, syntax or spelling errors. Electronically signed by: Artem Jaime M.D. 10/23/2019 3:54 PM Dictated: 10/23/19 1552 Transcribed: 10/23/19 1552 XR KUB/Abdomen 1 view CLINICAL HISTORY: right flnak eval for stone COMPARISON STUDY: 09/24/2017 FINDINGS: Possible 2 mm calculus distal right ureter. Renal and psoas shadows are otherwise unremarkable. Bowel pattern is nonobstructive. No secondary signs of free air. IMPRESSION: Potential interval development of a 2 mm calcification distal right ureteral level ACT 112: Negative or not required by law. The above report was generated using voice recognition software. It may contain grammatical, syntax or spelling errors. Electronically signed by: Artem Jaime M.D. 10/23/2019 3:51 PM Dictated: 10/23/19 1551 Transcribed: 10/23/[address] abd pelvis wo con CT DOSE: 579.05 mGy.cm HISTORY: Flank pain right flank pain eval for stone TECHNIQUE: Multiaxial CT images of the abdomen and pelvis were performed without contrast. A dose lowering technique was utilized adhering to the principles of ALARA. COMPARISON STUDY: 05/05/2019 FINDINGS: Lung bases are clear. The liver spleen and pancreas are unremarkable. Normal adrenal glands. Left kidney is negative for calcification or hydronephrosis. Mild fullness right renal collecting system and proximal right ureter. Mild right renal perinephric infiltrative change primarily at the mid and lower pole region of the perirenal fat. Vascular calcification posterior to the right margin of the bladder. A well-defined obstructing calculus is not appreciated. Diagnostic considerations include a right upper urinary tract infection versus recently passed calculus. Possible faint 4 mm calcification right ureteral pelvic junction Nonobstructive bowel pattern. Normal appendix. Reconstructed images suggest the possibility of a 4 mm calcification right ureteral pelvic junction. This is best seen transaxial image 176 IMPRESSION: 1. Mild right renal hydroureteronephrosis. 2. Possible 4 mm calcification right ureteral pelvic junction versus artifact. 3. Diagnostic considerations include a poorly defined obstructing calculus versus an upper right urinary tract infection. 4. Study is otherwise unremarkable. 5. Normal appendix. ACT 112: Negative or not required by law. The above report was generated using voice recognition software. It may contain grammatical, syntax or spelling errors. Electronically signed by: Artem Jaime M.D. 10/23/2019 5:09 PM Dictated: 10/23/19 1703 Transcribed: 10/23/19 1703
[2019-10-23] MEDS ORDERED: SODIUM CHLORIDE 0.9% 500 ML IV SCH (20:26)
[2019-10-23] MEDS ORDERED: buPROPion HCl 75 MG TABLET PO SCH (21:00)
[2019-10-23] MEDS: OXYCODONE/ACETAMINOPHEN 5mg/325mg TAB PO PRN (21:29)
[2019-10-24] MEDS: KETOROLAC TROMETHAMINE 15 MG/ML VIAL IV PRN ×2 (01:55→11:02)
[2019-10-24 06:16] LABS: Hematocrit (blood only) 34.3 % (37-47); Hemoglobin 11.3 g/dL (12.0-16.0); Mean Corpuscular Hemoglobin 30.5 pg (25-34); Mean Corpuscular Hgb Conc 32.9 g/dL (32-36); Mean Corpuscular Volume 92.7 fL (80-100); Mean Platelet Volume 9.9 fL (7.4-10.4); Platelet Count 223 K/uL (130-400); RDW Coefficient of Variation 14.4 % (11.5-14.5); RDW Standard Deviation 48.5 fL (36.4-46.3); White Blood Count 9.62 K/uL (4.8-10.8)
[2019-10-24] MEDS: OXYCODONE/ACETAMINOPHEN 5mg/325mg TAB PO PRN (06:17)
[2019-10-24 06:51] LABS: BUN Creatinine Ratio 17.8 (10-20); Calcium 8.3 mg/dl (8.5-10.1); Creatinine Clr Calc Pharmacy 134.5 ml/min; Est GFR (African American) 138.6; Est GFR (Non-African American) 119.6; Potassium 3.9 mmol/L (3.5-5.1)
--- NOTE | 2019-10-24 07:59 | Urology Consultation ---
Date of Consultation October 24, 2019 Assessment & Plan (1) Hydronephrosis, right: A/P 24 yo female with R hydro, questionable stone. Patient's CT imaging is fairly unremarkable for obstructive stone of significant size. Would hydrate, provide diet and pain control and monitor symptoms. Could consider stent if symptoms fail to improve or if she develops fevers or evidence of a UTI, but I suspect her culture might be contaminated as in the past. WBC normalized, Cr wnl and stable. Consider outpatient evaluation for mild R UPJ in a nonacute setting but she fails to give a typical history of back pain or Dietl's crisis. If her pain continues, consider CT scan with delayed urogram images for more accurate evaluation of her collecting system and possible transition point for her mild R hydro. Will monitor for now. Thank you for allowing us to participate in this patient's acute care. Please contact our service with any questions or concerns. History of Present Illness Reason for Consultation: R flank pain and renal inflammation, possible stone on CT scan. Attending Physician: Nestor Arenas MD History of Present Illness 24 yo female admitted due to persistent R flank pain x 4-5 days. She reports her pain is positional and worse post void. She denies similar pain in the past, fevers at home or emesis associated with her pain. She denies prior known stone history or evaluation. She denies baseline voiding complaints. Her ER and hospitalist records are reviewed. Due to persistence of her pain she presented to the ER and underwent CT scan of the abd/ pelvis, stone protocol. Images are personally reviewed and compared to past CT scan Apr 2019 done with contrast for lower abdominal pain. Radiology report of a possible R UPJ stone noted, CaOx crystals noted in urine. Imaging not overly convincing or typical of obstructing stone - stone debris seems more likely. There is a question of a crossing vessel on my evaluation, more easily seen on last, uninflamed CT with contrast. No significant perinephric inflammation noted, all UAs noted to be contaminated in past, reflected in culture results, 4+ bacteria with culture pending on current specimen. She denies dysuria or LUTS on presentation. consultation requested to assist with patient's care. Allergies Allergy/AdvReac Type Severity Reaction Status Date / Time No Known Allergies Allergy Verified 10/23/19 13:18 Home Medications Home Medications Medication Instructions Recorded Confirmed Type bupropion HCl 150 mg PO QAM 05/05/19 10/23/19 History aripiprazole [Abilify Maintena] 200 mg IM UD 10/11/19 10/23/19 History bupropion HCl 75 mg PO QPM 10/11/19 10/23/19 History Patient History Medical History (Updated 10/24/19 @ 07:55 by Bandar Quinonez MD) C. difficile diarrhea (Resolved) Depression (Chronic) Fainting spell (Acute) Hydronephrosis, right IBS (irritable bowel syndrome) Marijuana abuse (Acute) Mood disorder (Chronic) Mood disorder (Acute) Non-cardiac chest pain (Acute) Precordial chest pain (Acute) Syncope (Acute) Family History Other Diabetes Hypertension Social History Preferred Language: Korean Communication Ability: Effective Trailer Assembler Required: No Beliefs That Will Affect Care: None marital status: divorce Current Living Situation: Alone Other Information That Helps Us Care for You: No Feels Safe at Home: Yes Safety Concerns: Feels Safe At This Time Smoking Status: Current every day smoker Tobacco Type: cigarettes ; Do You Dip or Chew Tobacco: No ; Second Hand Exposure: Yes ; Tobacco Cessation Education Requested by Patient: No Hx Alcohol Use: No Hx Substance Use: No Review of Systems Constitutional: + chills and + fatigue; no fever Eyes: no diplopia Ear, Nose, Mouth, Throat: no ear trauma Respiratory: no hemoptysis Cardiovascular: no chest pain Gastrointestinal: + abdominal pain; no vomiting Genitourinary: no dysuria and no hematuria Musculoskeletal: + back pain Integumentary: no acne and no boil Neurologic: no paralysis Psychiatric: no hopelessness Endocrine: no cold intolerance Hematologic / Lymphatic: no easy bleeding and no lymphadenopathy Allergy / Immunological: no tongue swelling Physical Exam Constitutional: + obese; no acute distress Eyes: eyes not dysmorphic ENMT: Ears: no external ear abnormality Neck: trachea midline; no anterior neck swelling Respiratory: no respiratory distress and does not use accessory muscles Cardiovascular: Vessels: radial pulses present Gastrointestinal (Abdomen): Inspection/Auscultation: abdomen not distended Percussion/Palpation: abdomen soft; abdomen nontender Musculoskeletal: Head/Neck/Chest: normocephalic and neck supple Skin: normal turgor Neurologic: awake; not obtunded Psychiatric: Orientation: oriented x 3 Lymphatic: no lymphadenopathy Results & Data Vital Signs (Past 12 Hours) Vital Signs Temp Pulse Pulse Resp BP BP BP 10/24/19 07:11 37 C 72 20 91/61 L 10/23/19 23:31 37.3 C 70 20 117/71 10/23/19 20:22 37.3 C 75 20 105/70 10/23/19 20:04 72 18 103/57 L 10/23/19 20:00 72 18 103/57 L Pulse Ox 10/24/19 07:11 97 10/23/19 23:31 96 10/23/19 20:22 98 10/23/19 20:04 97 10/23/19 20:00 97 Laboratory Results Laboratory Results - last 48 hr 10/23/19 10/23/19 10/23/19 13:19 13:22 13:23 WBC RBC Hgb Hct MCV MCH MCHC RDW Std Deviation RDW Coeff of Sunshine Plt Count MPV Immature Gran % (Auto) Neut % (Auto) Lymph % (Auto) [place] % (Auto) Eos % (Auto) Baso % (Auto) Immature Gran # (Auto) Neut # (Auto) Lymph # (Auto) [place] # (Auto) Eos # (Auto) Baso # (Auto) Sodium Potassium Chloride Carbon Dioxide Anion Gap BUN Creatinine Est Cr Clr Drug Dosing Est GFR ( Amer) Est GFR (Non-Af Amer) BUN/Creatinine Ratio Glucose Calcium Total Bilirubin AST ALT Alkaline Phosphatase Total Protein Albumin Globulin Albumin/Globulin Ratio Lipase HCG, Qual Urine Color Dark Yellow Urine Appearance Turbid A Urine pH 5.5 POC Urine pH 5 Ur Specific Rice 1.020 Urine Protein 1+ H POC Urine Protein Trace H Urine Glucose (UA) Negative POC Ur Glucose (UA) Normal Urine Ketones Trace H POC Urine Ketones Negative Urine Blood 1+ H POC Urine Blood Trace H Urine Nitrite Positive A POC Urine Nitrite Positive A Urine Bilirubin Negative POC Urine Bilirubin Negative Urine Urobilinogen Negative Ur Leukocyte Esterase 3+ H POC U Leukocyte Esteras 1+ H Urine WBC (Auto) >30 H Urine RBC (Auto) 0-4 U Hyaline Cast (Auto) 10-30 H U Epithel Cells (Auto) >30 H Urine Bacteria (Auto) 4+ H Urine Crystals Not Reportable Calcium Oxalate Crystal Present A Granular Casts 1-5 H Urine Mucus Present A POC Ur Test NEG 10/23/19 10/23/19 10/23/19 13:39 13:39 13:39 WBC 13.64 H RBC 4.36 Hgb 13.4 Hct 40.0 MCV 91.7 MCH 30.7 MCHC 33.5 RDW Std Deviation 48.8 H RDW Coeff of Sunshine 14.4 Plt Count 265 MPV 10.1 Immature Gran % (Auto) 0.2 Neut % (Auto) 78.4 Lymph % (Auto) 13.1 [place] % (Auto) 7.7 Eos % (Auto) 0.4 Baso % (Auto) 0.2 Immature Gran # (Auto) 0.03 H Neut # (Auto) 10.68 H Lymph # (Auto) 1.79 [place] # (Auto) 1.05 H Eos # (Auto) 0.06 Baso # (Auto) 0.03 Sodium 139 Potassium 3.8 Chloride 107 Carbon Dioxide 28 Anion Gap 4.0 BUN 11 Creatinine 0.93 Est Cr Clr Drug Dosing 101.0 Est GFR ( Amer) 98.3 Est GFR (Non-Af Amer) 84.8 BUN/Creatinine Ratio 11.6 Glucose 73 Calcium 9.0 Total Bilirubin 0.3 AST 19 ALT 45 Alkaline Phosphatase 104 Total Protein 7.8 Albumin 3.3 L Globulin 4.5 H Albumin/Globulin Ratio 0.7 L Lipase 139 HCG, Qual Negative Urine Color Urine Appearance Urine pH POC Urine pH Ur Specific Rice Urine Protein POC Urine Protein Urine Glucose (UA) POC Ur Glucose (UA) Urine Ketones POC Urine Ketones Urine Blood POC Urine Blood Urine Nitrite POC Urine Nitrite Urine Bilirubin POC Urine Bilirubin Urine Urobilinogen Ur Leukocyte Esterase POC U Leukocyte Esteras Urine WBC (Auto) Urine RBC (Auto) U Hyaline Cast (Auto) U Epithel Cells (Auto) Urine Bacteria (Auto) Urine Crystals Calcium Oxalate Crystal Granular Casts Urine Mucus POC Ur Test 10/24/19 10/24/19 06:03 06:03 WBC 9.62 RBC 3.70 L Hgb 11.3 L Hct 34.3 L MCV 92.7 MCH 30.5 MCHC 32.9 RDW Std Deviation 48.5 H RDW Coeff of Sunshine 14.4 Plt Count 223 MPV 9.9 Immature Gran % (Auto) Neut % (Auto) Lymph % (Auto) [place] % (Auto) Eos % (Auto) Baso % (Auto) Immature Gran # (Auto) Neut # (Auto) Lymph # (Auto) [place] # (Auto) Eos # (Auto) Baso # (Auto) Sodium 142 Potassium 3.9 Chloride 113 H Carbon Dioxide 26 Anion Gap 3.0 BUN 12 Creatinine 0.70 Est Cr Clr Drug Dosing 134.5 Est GFR ( Amer) 138.6 Est GFR (Non-Af Amer) 119.6 BUN/Creatinine Ratio 17.8 Glucose 85 Calcium 8.3 L Total Bilirubin AST ALT Alkaline Phosphatase Total Protein Albumin Globulin Albumin/Globulin Ratio Lipase HCG, Qual Urine Color Urine Appearance Urine pH POC Urine pH Ur Specific Rice Urine Protein POC Urine Protein Urine Glucose (UA) POC Ur Glucose (UA) Urine Ketones POC Urine Ketones Urine Blood POC Urine Blood Urine Nitrite POC Urine Nitrite Urine Bilirubin POC Urine Bilirubin Urine Urobilinogen Ur Leukocyte Esterase POC U Leukocyte Esteras Urine WBC (Auto) Urine RBC (Auto) U Hyaline Cast (Auto) U Epithel Cells (Auto) Urine Bacteria (Auto) Urine Crystals Calcium Oxalate Crystal Granular Casts Urine Mucus POC Ur Test PG Care Time/CCT Total # of Minutes Spent Total Time Spent with Patient: Total time spent is greater than 50% in coordination of care (as documented) at patient's floor/unit and/or counseling patient:
[2019-10-24] MEDS ORDERED: LACTATED RINGER'S 1,000 ML IV SCH (08:15)
[2019-10-24] MEDS ORDERED: BuPROPion SR 150 MG TABCR PO SCH (09:00)
[2019-10-24] MEDS ORDERED: cefTRIAXone SODIUM 1,000 MG/50 ML BAG IV SCH (09:00)
--- NOTE | 2019-10-24 09:06 | Hospitalist Progress Note ---
Date of Service October 24, 2019 Subjective Urology consulted, continue hydration, pain control, diet restarted, will observe Results & Data Vital Signs (Past 12 Hours) Vital Signs Temp Pulse Resp BP BP Pulse Ox 10/24/19 07:11 37 C 72 20 91/61 L 97 10/23/19 23:31 37.3 C 70 20 117/71 96 Laboratory Results 10/24/19 10/24/19 10/23/19 Range/Units 06:03 06:03 13:39 WBC 9.62 13.64 H (4.8-10.8) K/uL RBC 3.70 L 4.36 (4.2-5.4) M/uL Hgb 11.3 L 13.4 (12.0-16.0) g/dL Hct 34.3 L 40.0 (37-47) % MCV 92.7 91.7 (80-100) fL MCH 30.5 30.7 (25-34) pg MCHC 32.9 33.5 (32-36) g/dL RDW Std Deviation 48.5 H 48.8 H (36.4-46.3) fL RDW Coeff of Sunshine 14.4 14.4 (11.5-14.5) % Plt Count 223 265 (130-400) K/uL MPV 9.9 10.1 (7.4-10.4) fL Immature Gran % (Auto) 0.2 % Neut % (Auto) 78.4 % Lymph % (Auto) 13.1 % [place] % (Auto) 7.7 % Eos % (Auto) 0.4 % Baso % (Auto) 0.2 % Immature Gran # (Auto) 0.03 H (0.00-0.02) K/uL Neut # (Auto) 10.68 H (1.4-6.5) K/uL Lymph # (Auto) 1.79 (1.2-3.4) K/uL [place] # (Auto) 1.05 H (0.11-0.59) K/uL Eos # (Auto) 0.06 (0-0.5) K/uL Baso # (Auto) 0.03 (0-0.2) K/uL Sodium 142 (136-145) mmol/L Potassium 3.9 (3.5-5.1) mmol/L Chloride 113 H (98-107) mmol/L Carbon Dioxide 26 (21-32) mmol/L Anion Gap 3.0 (3-11) BUN 12 (7-18) mg/dl Creatinine 0.70 (0.6-1.2) mg/dl Est Cr Clr Drug Dosing 134.5 ml/min Est GFR ( Amer) 138.6 Est GFR (Non-Af Amer) 119.6 BUN/Creatinine Ratio 17.8 (10-20) Glucose 85 (70-99) mg/dl Calcium 8.3 L (8.5-10.1) mg/dl Total Bilirubin (0.2-1) mg/dl AST (15-37) U/L ALT (12-78) U/L Alkaline Phosphatase (45-117) U/L Total Protein (6.4-8.2) gm/dl Albumin (3.4-5.0) gm/dl Globulin (2.5-4.0) gm/dl Albumin/Globulin Ratio (0.9-2) Lipase (73-393) U/L HCG, Qual (Negative) Urine Color Urine Appearance (Clear) Urine pH (4.5-7.5) POC Urine pH (4.5-7.5) Ur Specific [place] (1.000-1.030) Urine Protein (Negative) POC Urine Protein (Negative) Urine Glucose (UA) (Negative) POC Ur Glucose (UA) (Normal) Urine Ketones (Negative) POC Urine Ketones (Negative) Urine Blood (Negative) POC Urine Blood (Negative) Urine Nitrite (Negative) POC Urine Nitrite (Negative) Urine Bilirubin (Negative) POC Urine Bilirubin (Negative) Urine Urobilinogen (Negative) POC Urine Urobilinogen Ur Leukocyte Esterase (Negative) POC U Leukocyte Esteras (Negative) Urine WBC (Auto) (0-5) /hpf Urine RBC (Auto) (0-4) /hpf U Hyaline Cast (Auto) (0-5) /lpf U Epithel Cells (Auto) (0-5) /lpf Urine Bacteria (Auto) (Negative) Urine Crystals Calcium Oxalate Crystal (None Prsent) Granular Casts (0) /lpf Urine Mucus (None Prsent) POC Ur Test (NEG) 10/23/19 10/23/19 10/23/19 Range/Units 13:39 13:39 13:23 WBC (4.8-10.8) K/uL RBC (4.2-5.4) M/uL Hgb (12.0-16.0) g/dL Hct (37-47) % MCV (80-100) fL MCH (25-34) pg MCHC (32-36) g/dL RDW Std Deviation (36.4-46.3) fL RDW Coeff of [place] (11.5-14.5) % Plt Count (130-400) K/uL MPV (7.4-10.4) fL Immature Gran % (Auto) % Neut % (Auto) % Lymph % (Auto) % [place] % (Auto) % Eos % (Auto) % Baso % (Auto) % Immature Gran # (Auto) (0.00-0.02) K/uL Neut # (Auto) (1.4-6.5) K/uL Lymph # (Auto) (1.2-3.4) K/uL [place] # (Auto) (0.11-0.59) K/uL Eos # (Auto) (0-0.5) K/uL Baso # (Auto) (0-0.2) K/uL Sodium 139 (136-145) mmol/L Potassium 3.8 (3.5-5.1) mmol/L Chloride 107 (98-107) mmol/L Carbon Dioxide 28 (21-32) mmol/L Anion Gap 4.0 (3-11) BUN 11 (7-18) mg/dl Creatinine 0.93 (0.6-1.2) mg/dl Est Cr Clr Drug Dosing 101.0 ml/min Est GFR ( Amer) 98.3 Est GFR (Non-Af Amer) 84.8 BUN/Creatinine Ratio 11.6 (10-20) Glucose 73 (70-99) mg/dl Calcium 9.0 (8.5-10.1) mg/dl Total Bilirubin 0.3 (0.2-1) mg/dl AST 19 (15-37) U/L ALT 45 (12-78) U/L Alkaline Phosphatase 104 (45-117) U/L Total Protein 7.8 (6.4-8.2) gm/dl Albumin 3.3 L (3.4-5.0) gm/dl Globulin 4.5 H (2.5-4.0) gm/dl Albumin/Globulin Ratio 0.7 L (0.9-2) Lipase 139 (73-393) U/L HCG, Qual Negative (Negative) Urine Color Urine Appearance (Clear) Urine pH (4.5-7.5) POC Urine pH (4.5-7.5) Ur Specific [place] (1.000-1.030) Urine Protein (Negative) POC Urine Protein (Negative) Urine Glucose (UA) (Negative) POC Ur Glucose (UA) (Normal) Urine Ketones (Negative) POC Urine Ketones (Negative) Urine Blood (Negative) POC Urine Blood (Negative) Urine Nitrite (Negative) POC Urine Nitrite (Negative) Urine Bilirubin (Negative) POC Urine Bilirubin (Negative) Urine Urobilinogen (Negative) POC Urine Urobilinogen Ur Leukocyte Esterase (Negative) POC U Leukocyte Esteras (Negative) Urine WBC (Auto) (0-5) /hpf Urine RBC (Auto) (0-4) /hpf U Hyaline Cast (Auto) (0-5) /lpf U Epithel Cells (Auto) (0-5) /lpf Urine Bacteria (Auto) (Negative) Urine Crystals Calcium Oxalate Crystal (None Prsent) Granular Casts (0) /lpf Urine Mucus (None Prsent) POC Ur Test NEG (NEG) 10/23/19 10/23/19 Range/Units 13:22 13:19 WBC (4.8-10.8) K/uL RBC (4.2-5.4) M/uL Hgb (12.0-16.0) g/dL Hct (37-47) % MCV (80-100) fL MCH (25-34) pg MCHC (32-36) g/dL RDW Std Deviation (36.4-46.3) fL RDW Coeff of [place] (11.5-14.5) % Plt Count (130-400) K/uL MPV (7.4-10.4) fL Immature Gran % (Auto) % Neut % (Auto) % Lymph % (Auto) % [place] % (Auto) % Eos % (Auto) % Baso % (Auto) % Immature Gran # (Auto) (0.00-0.02) K/uL Neut # (Auto) (1.4-6.5) K/uL Lymph # (Auto) (1.2-3.4) K/uL [place] # (Auto) (0.11-0.59) K/uL Eos # (Auto) (0-0.5) K/uL Baso # (Auto) (0-0.2) K/uL Sodium (136-145) mmol/L Potassium (3.5-5.1) mmol/L Chloride (98-107) mmol/L Carbon Dioxide (21-32) mmol/L Anion Gap (3-11) BUN (7-18) mg/dl Creatinine (0.6-1.2) mg/dl Est Cr Clr Drug Dosing ml/min Est GFR ( Amer) Est GFR (Non-Af Amer) BUN/Creatinine Ratio (10-20) Glucose (70-99) mg/dl Calcium (8.5-10.1) mg/dl Total Bilirubin (0.2-1) mg/dl AST (15-37) U/L ALT (12-78) U/L Alkaline Phosphatase (45-117) U/L Total Protein (6.4-8.2) gm/dl Albumin (3.4-5.0) gm/dl Globulin (2.5-4.0) gm/dl Albumin/Globulin Ratio (0.9-2) Lipase (73-393) U/L HCG, Qual (Negative) Urine Color Dark Yellow Urine Appearance Turbid A (Clear) Urine pH 5.5 (4.5-7.5) POC Urine pH 5 (4.5-7.5) Ur Specific [place] 1.020 (1.000-1.030) Urine Protein 1+ H (Negative) POC Urine Protein Trace H (Negative) Urine Glucose (UA) Negative (Negative) POC Ur Glucose (UA) Normal (Normal) Urine Ketones Trace H (Negative) POC Urine Ketones Negative (Negative) Urine Blood 1+ H (Negative) POC Urine Blood Trace H (Negative) Urine Nitrite Positive A (Negative) POC Urine Nitrite Positive A (Negative) Urine Bilirubin Negative (Negative) POC Urine Bilirubin Negative (Negative) Urine Urobilinogen Negative (Negative) POC Urine Urobilinogen Pending Ur Leukocyte Esterase 3+ H (Negative) POC U Leukocyte Esteras 1+ H (Negative) Urine WBC (Auto) >30 H (0-5) /hpf Urine RBC (Auto) 0-4 (0-4) /hpf U Hyaline Cast (Auto) 10-30 H (0-5) /lpf U Epithel Cells (Auto) >30 H (0-5) /lpf Urine Bacteria (Auto) 4+ H (Negative) Urine Crystals Not Reportable Calcium Oxalate Crystal Present A (None Prsent) Granular Casts 1-5 H (0) /lpf Urine Mucus Present A (None Prsent) POC Ur Test (NEG) Diagnostic Findings CT abd/plvs w/o con 10/23/2019 IMPRESSION: 1. Mild right renal hydroureteronephrosis. 2. Possible 4 mm calcification right ureteral pelvic junction versus artifact. 3. Diagnostic considerations include a poorly defined obstructing calculus versus an upper right urinary tract infection. 4. Study is otherwise unremarkable. 5. Normal appendix. Medications Administered Current Inpatient Medications Bupropion HCl (Wellbutrin-Sr) 150 mg PO QAM PRASANTH Stop: 11/23/19 08:59 Last Admin: 10/24/19 07:44 Dose: 150 mg Documented by: Bupropion HCl (Wellbutrin) 75 mg PO QPM PRASANTH Stop: 11/22/19 20:59 Last Admin: 10/23/19 21:29 Dose: Not Given Documented by: Ceftriaxone Sodium (Rocephin) 1,000 mg in 50 mls @ 100 mls/hr IV DAILY PRASANTH Stop: 11/03/19 08:59 Last Infusion: 10/24/19 08:13 Dose: Infused Documented by: Lactated Ringer's (Lr) 1,000 mls @ 125 mls/hr IV .Q8H PRASANTH Stop: 11/23/19 08:14 Last Admin: 10/24/19 08:31 Dose: 125 mls/hr Documented by: Ketorolac Tromethamine (Toradol) 15 mg IV Q6H PRN PRN Reason: Pain Stop: 10/28/19 20:25 Last Admin: 10/24/19 01:55 Dose: 15 mg Documented by: Oxycodone/Acetaminophen (Percocet 5mg/325mg) 1 tab PO Q6H PRN PRN Reason: Pain Stop: 11/06/19 20:25 Last Admin: 10/24/19 06:17 Dose: 1 tab Documented by:
--- NOTE | 2019-10-24 12:50 | Discharge Summary ---
Date of Service October 24, 2019 Admission HPI Per Admitting Provider 24 years old female with past medical history of tobacco abuse, depression, came to the ER for right sided flank pain. Patient said pain started 4 days ago in the right flank area then radiated to the right groin area. She said the pain is worsening with movement. she described the pain as sharp and comes and goes. She said she tried OTC pain med with no relief. She said today the pain is worsening, grade 9 out of 10. She denies any fever but mentioned that she has some chills. she denies any dysuria or urinary frequency. She has her menstruation currently. Denies any chest pain, palpitation, dizziness, s hortness of breath. Discharge Data Allergies Allergy/AdvReac Type Severity Reaction Status Date / Time No Known Allergies Allergy Verified 10/23/19 13:18 Consultations 10/23/19 17:54 ED Decision to Admit Stat 10/23/19 20:26 Consult Urology Routine Ordered Studies 10/23/19 13:09 US renal/blad retro comp Stat 10/23/19 15:58 CT abd pelvis wo con Stat Discharge Plan Discharge Items Patient Disposition: Home - Self-Care Reason For Visit: RIGHT FLANK PAIN Discharge Diagnosis: UTI, possible nonobstructing renal stone Activity: Resume your previous activity Activity Comment: as tolerated, pace yourself, ask for help as needed Non-emergency contact: Primary Care Provider and Urologist Call non-emergency contact if: you have any medication questions and your symptoms worsen Follow-up/Referrals: Ruth Rossi DO [Primary Care Provider] - Diet: Regular Diet Comment: Drink plenty of fluids, especially water Addtl Attending Provider Instructions: Make sure to follow up with your primary care doctor within 1 week. You may need further follow up/evaluation by urology as well. Take prescribed antibiotic twice a day, take the first dose tomorrow morning (10/25/2019). Make sure to keep hydrated, drink plenty of fluids, especially water. For pain, you can take tylenol 1,000 mg three times a day (max daily dose is 3,000 mg). You can also take advil/ibuprofen 200 mg every 4-6 hrs. You can apply lidocaine patch (Salonpas) on your back, these can be also obtained over the counter. Pending Studies at Discharge: Yes Studies:: Urine cultx Stand-Alone Forms: My [facility]ASCET, Smoking Cessation Medications and DC Order Prescriptions: New cefuroxime axetil 250 mg tablet 250 mg PO BID 2 Days Qty: 4 RF: 0 Continued bupropion HCl 150 mg tablet sustained-release 12 hr 150 mg PO QAM RF: 0 bupropion HCl 75 mg Tablet 75 mg PO QPM RF: 0 Abilify Maintena 300 mg Suspension,Extended Rel Recon 200 mg IM UD RF: 0 Discharge Orders: Discharge Order (Routine); Ordered 10/24/19 Ordered By: Nestor Arenas Admission Data Admit Date/Time: 10/23/19 19:01 Attending Provider: Nestor Arenas Admit Provider: Boy Pickard Primary Care Provider: Ruth Rossi Other Providers: Boy Pickard ; Bandar Quinonez I.
== END 2019-10-24 13:00 | disposition home or self-care (01) | DRG 690 ==
LOC: ED 12:30 → 4W 19:01 → SUATTDRO 19:01 → 4W 20:04